=== PATIENT | female | born 1945 | race Caucasian/White ===

== ENCOUNTER → 2018-03-03 09:16 | Outpatient (CLI) | payer OTHER, SELFPAY ==
[2018-03-03 09:52] LABS: Hemoglobin A1C% w Est Avg Glu 6.9 % (4.0-6.0)
[2018-03-03 10:50] LABS: Alanine Aminotransferase 22 IU/L (9-52); Albumin Globulin Ratio 1.1 (1.0-2.8); Alkaline Phosphatase 92 U/L (38-126); Aspartate Aminotransferase 15 IU/L (14-36); BUN Creatinine Ratio 28.6 (6-22); Bilirubin Total 0.4 mg/dL (0.2-1.3); Blood Urea Nitrogen 20 mg/dL (7-17); Calcium 9.6 mg/dL (8.4-10.2); Carbon Dioxide 31 mmol/L (22-32); Chloride 102 mmol/L (98-107); Estimated Glomerular Filt Rate > 60.0 mL/min (>60); Globulin 3.5 g/dL (1.7-4.1); Glucose 115 mg/dL (80-110); HEMOLYSIS < 15 (0-50); Sodium 142 mmol/L (137-145); Total Protein 7.5 g/dL (6.3-8.2)
[2018-03-03 11:19] LABS: Creatinine Urine Random 99.6 mg/dL
[2018-03-03 11:21] LABS: Microalbumin Urine Random 0.7 mg/dL (0-1.6)
== END ==
PROVIDERS: PCP Internal Medicine; Visit Provider Internal Medicine
DX: E11.9 Type 2 diabetes mellitus without complications (principal); E78.00 Pure hypercholesterolemia, unspecified
CPT/HCPCS: 36415; 80053; 82043; 82570; 83036

== ENCOUNTER → 2018-03-12 10:49 | Outpatient (CLI) | payer OTHER, SELFPAY ==
[2018-03-12 13:05] LABS: Cholesterol 259 mg/dL (140-199); HDL Cholesterol 65 mg/dL (40-60); LDL Cholesterol Calculated 150 mg/dL (<100); Triglycerides 219 mg/dL (35-150)
== END ==
PROVIDERS: Family Provider Internal Medicine; PCP Internal Medicine; Visit Provider Internal Medicine
DX: E78.00 Pure hypercholesterolemia, unspecified (principal)
CPT/HCPCS: 36415; 80061

== ENCOUNTER → 2018-06-09 10:21 | Outpatient (CLI) | payer OTHER, SELFPAY ==
[2018-06-09 11:48] LABS: Cholesterol 251 mg/dL (140-199); HDL Cholesterol 60 mg/dL (40-60); LDL Cholesterol Calculated 147 mg/dL (<100); Triglycerides 220 mg/dL (35-150)
== END ==
PROVIDERS: Family Provider Internal Medicine; PCP Internal Medicine; Visit Provider Internal Medicine
DX: E78.00 Pure hypercholesterolemia, unspecified (principal)
CPT/HCPCS: 36415; 80061

== ENCOUNTER → 2018-06-23 09:48 | Outpatient (CLI) | payer OTHER, SELFPAY | PROVIDERS: PCP Internal Medicine; Visit Provider Internal Medicine | DX: M81.0 Age-related osteoporosis without current pathological fracture (principal); Z78.0 Asymptomatic menopausal state; E11.9 Type 2 diabetes mellitus without complications; Z87.891 Personal history of nicotine dependence | CPT/HCPCS: 77080 ==

== ENCOUNTER → 2018-09-04 09:27 | Outpatient (CLI) | payer OTHER, SELFPAY ==
[2018-09-04 10:11] LABS: Alanine Aminotransferase 20 IU/L (9-52); Aspartate Aminotransferase 18 IU/L (14-36); BUN Creatinine Ratio 28.6 (6-22); Blood Urea Nitrogen 20 mg/dL (7-17); Calcium 9.8 mg/dL (8.4-10.2); Carbon Dioxide 29 mmol/L (22-32); Chloride 105 mmol/L (98-107); Cholesterol 251 mg/dL (140-199); Estimated Glomerular Filt Rate > 60.0 mL/min (>60); Glucose 133 mg/dL (80-110); HDL Cholesterol 61 mg/dL (40-60); HEMOLYSIS < 15 (0-50); LDL Cholesterol Calculated 154 mg/dL (<100); Potassium 5.1 mmol/L (3.4-5.1); Sodium 143 mmol/L (137-145); Triglycerides 180 mg/dL (35-150)
[2018-09-04 10:27] LABS: Hemoglobin A1C% w Est Avg Glu 7.2 % (4.0-6.0)
[2018-09-04 11:02] LABS: Hep C Virus Ab w/Reflex Quant NEGATIVE s/c (NEGATIVE)
[2018-09-04 11:19] LABS: Creatinine Urine Random 104.3 mg/dL
[2018-09-04 11:22] LABS: Microalbumi Creatinin Ratio Ur 14.3 ug/mg CR (<30); Microalbumin Urine Random 1.5 mg/dL (0-1.6)
== END ==
PROVIDERS: PCP Internal Medicine; Visit Provider Internal Medicine
DX: E11.9 Type 2 diabetes mellitus without complications (principal); I10 Essential (primary) hypertension; E78.00 Pure hypercholesterolemia, unspecified; Z00.00 Encounter for general adult medical examination without abnormal findings
CPT/HCPCS: 36415; 80048; 80061; 82043; 82570; 83036; 84450; 84460; 86803

== ENCOUNTER 2018-11-14 12:58 | Emergency (ER) | payer OTHER, SELFPAY ==
[2018-11-14 13:13] VITALS: BP 107/67; PULSE 76; RESP 18; TEMP 36.8; O2SAT 95; BMI 29.8
--- NOTE | 2018-11-14 14:27 | ED.NECK ---
HPI - Neck Pain/Injury <TADEO Naranjo - Last Filed: 11/14/18 17:35> General Chief Complaint: Neck Pain/Injury Stated Complaint: LEFT ARM PAIN/WEAK/SHOULDER LT Time Seen by Provider: 11/14/18 14:07 Source: patient and family Mode of arrival: ambulatory Limitations: no limitations History of Present Illness HPI Narrative: Patient is a 72-year-old female who presents with her son with chief complaint of left neck and shoulder pain. Left neck pain started several months ago and left shoulder pain started several months ago. She complains of decreased range of motion with her left shoulder. Patient denies any chest pain. She does have a history of a stroke and diabetes and is concerned that she was having another stroke. Of note she states that the shoulder pain started several weeks ago when the neck pain several months ago. Her son states that she was weak this morning and in so much pain with her arm that she could not get out of bed. The patient denies any blurry vision double vision. She denies any chest pain or shortness of breath. she states that her left shoulder pain is worse with range of motion and movement. She states she had 1 episode of hot flashes and chills the other day. Related Data Previous Rx's Medication Instructions Recorded aspirin 325 mg PO QDAY #30 tab 04/02/17 atorvastatin [Lipitor] 40 mg PO HS #30 tab 04/02/17 carvedilol [Coreg] 6.25 mg PO BID #60 tab 04/02/17 insulin glargine [Lantus Solostar 25 unit SQ QDAY #1 vial 04/02/17 U-100 Insulin] losartan 50 mg PO BID #60 tab 04/02/17 metformin [Glucophage] 1,000 mg PO BIDCC #60 tab 04/02/17 lidocaine 1 patch TOP DAILY #15 each 11/14/18 Allergies Allergy/AdvReac Type Severity Reaction Status Date / Time codeine [CODEINE] Allergy Intermediate Verified 11/14/18 13:16 Review of Systems <TADEO Naranjo - Last Filed: 11/14/18 17:35> Review of Systems GENERAL: HPI HEENT: Denies sinus pain, ear pain, sore throat, difficulty swallowing, dizziness. RESPIRATORY: Denies dyspnea, cough, wheezing, hemoptysis, sputum. CARDIOVASCULAR: Denies chest pain, palpitations, orthopnea, edema, GASTROINTESTINAL: Denies nausea, vomiting, abdominal pain, diarrhea, constipation, melena. : Denies dysuria, frequency, incontinence, hematuria, urinary retention. MUSCULOSKELETAL: See HPI SKIN: Denies rash, skin lesions, or other NEUROLOGIC: See HPI PSYCHIATRIC: No concerning psychosocial issues. 12 point review of systems is negative except for those stated above PFSH <Eileen TADEO Mccollum - Last Filed: 11/14/18 17:35> Surgical History (Updated 12/16/17 @ 05:36 by Angle Mello DO) Status post ovarian cystectomy Family History (Updated 11/04/13 @ 00:00 by Angle Mello DO) Mother Diabetes mellitus Family History (Updated 11/04/13 @ 00:00 by Angle Mello DO) Mother Diabetes mellitus Exam <TADEO Naranjo - Last Filed: 11/14/18 17:35> Narrative Exam Narrative: GENERAL: The condition on early female lying on stretcher HEAD: Atraumatic. Normocephalic. No temporal or scalp tenderness. EYES: Pupils equal round and reactive. Extraocular motions intact. No scleral icterus. No injection or drainage. no nystagmus noted. ENT: Nose without bleeding, purulent drainage or septal hematoma. Throat without erythema, tonsillar hypertrophy or exudate. Uvula midline. Airway patent. NECK: Trachea midline. No JVD or lymphadenopathy. Supple, nontender, no meningeal signs. CARDIOVASCULAR: Regular rate and rhythm without murmurs, gallops, or rubs. RESPIRATORY: Clear to auscultation. Breath sounds equal bilaterally. No wheezes, rales, or rhonchi. GASTROINTESTINAL: Abdomen soft, non-tender, nondistended. No hepato-splenomegaly, or palpable masses. No guarding. EXTREMITIES: Pain to palpation left shoulder, decreased extension and flexion left shoulder noted. Pain on movement noted. Strength is equal bilateral hands. Positive radial pulses bilaterally. patient has pain on passive range of motion of left shoulder. BACK: Nontender without deformity or crepitance. No flank tenderness. NEURO: AOx3. Strength is equal upper and lower extremities bilaterally. Cranial nerves grossly intact. SKIN: No rash or erythema. No erythema or ecchymosis or rash noted left shoulder. Initial Vital Signs Initial Vital Signs: Vital Signs Temperature 98.3 F 11/14/18 13:13 Pulse Rate 76 11/14/18 13:13 Respiratory Rate 18 11/14/18 13:13 Blood Pressure 107/67 11/14/18 13:13 Pulse Oximetry 95 11/14/18 13:13 <Katie Victoria DO - Last Filed: 11/15/18 07:38> Initial Vital Signs Initial Vital Signs: Vital Signs Temperature 98.3 F 11/14/18 13:13 Pulse Rate 76 11/14/18 13:13 Respiratory Rate 18 11/14/18 13:13 Blood Pressure 107/67 11/14/18 13:13 Pulse Oximetry 95 11/14/18 13:13 Course <BINU NaranjoBC - Last Filed: 11/14/18 17:35> Course Narrative: I spoke profusely with the patient and her son given her long duration and the neck and shoulder pain. The son states that the patient had 15 physical therapy appointments with she did not attend. He states that she has a cane and a walker to use at home, but does not use either. They state that she has had a consistent decline in strength since August, when she saw Dr. Sarmiento for her neck and shoulder pain. she states she did not go to physical therapy because she did not want to. Orders Ordered: ED Orders 11/14/18 14:47 CT head/brain wo con Stat XR shoulder LT min 2V Stat 11/14/18 15:15 Complete Blood Count AUTO DIFF Stat Comprehensive Metabolic Panel Stat Influenza A and B by PCR Rapid Stat 11/14/18 16:40 Urinalysis and Microscopic Stat Vital Signs - 8 hr 11/14/18 13:13 Temperature 98.3 F Pulse Rate 76 Respiratory Rate 18 Blood Pressure 107/67 Pulse Oximetry 95 <Katie Victoria DO - Last Filed: 11/15/18 07:38> Orders Ordered: ED Orders 11/14/18 14:47 CT head/brain wo con Stat XR shoulder LT min 2V Stat 11/14/18 15:15 Complete Blood Count AUTO DIFF Stat Comprehensive Metabolic Panel Stat Influenza A and B by PCR Rapid Stat 11/14/18 16:40 Urinalysis and Microscopic Stat Vital Signs - 8 hr 11/14/18 13:13 Temperature 98.3 F Pulse Rate 76 Respiratory Rate 18 Blood Pressure 107/67 Pulse Oximetry 95 MDM - Neck Pain/Injury <Eileen Mccollum, [employer]- - Last Filed: 11/14/18 17:35> Lab Data Result diagrams: 11/14/18 15:15 11/14/18 15:15 Lab Results 11/14/18 11/14/18 11/14/18 Range/Units 15:15 15:15 15:15 WBC 14.0 H (4.5-11.0) X10^3/uL RBC 4.32 (4.0-5.2) X10^6/uL Hgb 13.0 (12.0-16.0) g/dL Hct 39.1 (36-46) % MCV 90.5 (80-100) fL MCH 30.1 (26-34) PG MCHC 33.3 (30-36) % RDW 13.8 (11.6-14.8) % Plt Count 279 (150-400) X10^3/uL Neut % (Auto) 76.5 H (50-75) % Lymph % (Auto) 12.5 L (25-40) % [place] % (Auto) 8.0 (3-14) % Eos % (Auto) 2.3 (2-4) % Baso % (Auto) 0.7 (0-2) % Neut # (Auto) 65821 H (5304-8171) /uL Lymph # (Auto) 1800 (1473-2172) /uL [place] # (Auto) 1100 H (0-900) /uL Eos # (Auto) 300 (0-450) /uL Baso # (Auto) 100 (0-100) /uL Sodium 139 (137-145) mmol/L Potassium 4.2 (3.4-5.1) mmol/L Chloride 101 (98-107) mmol/L Carbon Dioxide 28 (22-32) mmol/L BUN 21 H (7-17) mg/dL Creatinine 0.70 (0.52-1.04) mg/dL Estimated GFR > 60.0 (>60) mL/min BUN/Creatinine Ratio 30.0 H (6-22) Glucose 222 H (80-110) mg/dL Calcium 9.1 (8.4-10.2) mg/dL Total Bilirubin 0.5 (0.2-1.3) mg/dL AST 16 (14-36) IU/L ALT 17 (9-52) IU/L Alkaline Phosphatase 77 (38-126) U/L Total Protein 7.6 (6.3-8.2) g/dL Albumin 3.9 (3.5-5.0) g/dL Globulin 3.7 (1.7-4.1) g/dL Albumin/Globulin Ratio 1.1 (1.0-2.8) Urine Color Urine Appearance Urine pH (4.5-8.0) Ur Specific [place] (1.000-1.035) Urine Protein (Negative) Urine Glucose (UA) (Negative) g/dL Urine Ketones (NEGATIVE) Urine Occult Blood (Negative) Urine Nitrate (Negative) Urine Bilirubin (NEGATIVE) Urine Urobilinogen (0.2) E.U./dL Ur Leukocyte Esterase (NEGATIVE) Urine RBC (0-5/HPF) Urine WBC (0-5/HPF) Ur Squamous Epith Cells Urine Bacteria (None) Ur Culture Indicated? Influenza A & B (PCR) Negative (Negative) 11/14/18 Range/Units 16:40 WBC (4.5-11.0) X10^3/uL RBC (4.0-5.2) X10^6/uL Hgb (12.0-16.0) g/dL Hct (36-46) % MCV (80-100) fL MCH (26-34) PG MCHC (30-36) % RDW (11.6-14.8) % Plt Count (150-400) X10^3/uL Neut % (Auto) (50-75) % Lymph % (Auto) (25-40) % [place] % (Auto) (3-14) % Eos % (Auto) (2-4) % Baso % (Auto) (0-2) % Neut # (Auto) (9010-8778) /uL Lymph # (Auto) (8241-7566) /uL [place] # (Auto) (0-900) /uL Eos # (Auto) (0-450) /uL Baso # (Auto) (0-100) /uL Sodium (137-145) mmol/L Potassium (3.4-5.1) mmol/L Chloride (98-107) mmol/L Carbon Dioxide (22-32) mmol/L BUN (7-17) mg/dL Creatinine (0.52-1.04) mg/dL Estimated GFR (>60) mL/min BUN/Creatinine Ratio (6-22) Glucose (80-110) mg/dL Calcium (8.4-10.2) mg/dL Total Bilirubin (0.2-1.3) mg/dL AST (14-36) IU/L ALT (9-52) IU/L Alkaline Phosphatase (38-126) U/L Total Protein (6.3-8.2) g/dL Albumin (3.5-5.0) g/dL Globulin (1.7-4.1) g/dL Albumin/Globulin Ratio (1.0-2.8) Urine Color Yellow Urine Appearance Clear Urine pH 5.0 (4.5-8.0) Ur Specific [place] >=1.030 H (1.000-1.035) Urine Protein Negative (Negative) Urine Glucose (UA) Trace H (Negative) g/dL Urine Ketones Negative (NEGATIVE) Urine Occult Blood Negative (Negative) Urine Nitrate Negative (Negative) Urine Bilirubin Negative (NEGATIVE) Urine Urobilinogen 0.2 (0.2) E.U./dL Ur Leukocyte Esterase Negative (NEGATIVE) Urine RBC None seen (0-5/HPF) Urine WBC None seen (0-5/HPF) Ur Squamous Epith Cells 10-30 /hpf H Urine Bacteria None seen (None) Ur Culture Indicated? Cult not indicated Influenza A & B (PCR) (Negative) Imaging Data CT scan - head: Radiologist's impression: Isabel Ruiz 72 [address] 1945 [place] [address] CT Scan Report Signed Patient: Isabel Ruiz MMR#: [id number] : 6Acct:[id number] Age/Sex: 72 / FDate of Service: 11/14/18 Loc: ED Accession Number: [id number] Procedure: CT head/brain wo con Ordering Provider: Eileen Mccollum PROCEDURE: CT HEAD/BRAIN WO CON INDICATIONS: weakness TECHNIQUE: Noncontrast 4.5 mm thick angled axial sections acquired from the foramen magnum to the vertex, with coronal and sagittal reformats. For radiation dose reduction, the following was used: automated exposure control, adjustment of mA and/or kV according to patient size. COMPARISON: [facility], CT, HEAD WITHOUT CONTRAST, 03/31/2017, 7:42. FINDINGS: Image quality: Excellent. CSF spaces: Basal cisterns are patent. No extra-axial fluid collections. The ventricles are symmetric in size and shape. Brain: No intracranial bleeds or masses. No acute stroke seen. There is cerebral volume loss for age, with resultant ventricular and sulcal prominence. There are moderate to severe periventricular and deep white matter chronic small vessel ischemic changes. Multiple small chronic bilateral deep white matter lacunar infarctions are noted. There is intracranial internal carotid artery atherosclerosis. Skull and face: Calvarium and visualized facial bones appear intact, without suspicious lesions. Sinuses: Visualized sinuses and mastoids are clear. IMPRESSION: 1. Age-related volume loss and moderate to severe small vessel ischemic change. Multiple old lacunar infarctions. 2. No evidence of acute stroke, hemorrhage, or mass. Dictated by: Morgan Mcdowell M.D. on 11/14/2018 at 15:20 Approved by: Morgan Mcdowell M.D. on 11/14/2018 at 15:22 shoulder xray : Radiologist's impression: [place] [address] XRay Report Signed Patient: Isabel Ruiz [facility]#: [id number] : 6Acct:[id number] Age/Sex: 72 / FDate of Service: 11/14/18 Loc: ED Accession Number: [id number] Procedure: XR shoulder LT min 2V Ordering Provider: Eileen Mccollum- PROCEDURE: XR SHOULDER LT MIN 2V INDICATIONS: shoulder pain x several weeks, decreased rom TECHNIQUE: 3 views of the shoulder were acquired. COMPARISON: None. FINDINGS: Bones: No fractures or dislocations. No suspicious bony lesions. Visualized ribs appear intact. Soft tissues: Bursal calcifications are consistent with calcific bursitis. IMPRESSION: No acute bony abnormality of the left shoulder. Calcific bursitis. Dictated by: Morgan Mcdowell M.D. on 11/14/2018 at 15:15 Approved by: Morgan Mcdowell M.D. on 11/14/2018 at 15:15 [facility] Narrative Medical decision making narrative: The patient is a 72-year-old female who presents with a long history of left shoulder pain and left-sided neck pain. she has been taking [place] given to her by her primary care provider. She is also concerned about repeat stroke given the pain in her left shoulder. I discussed that strokes do not generally presents with pain on range of motion. she has otherwise a normal neurological exam. X-ray illustrated calcific bursitis of her left shoulder. Her head CT showed no recent infarct. Given her complaints of chills, I obtained a flu which was negative. we did check for a UTI given the patient's diffuse complaints, but that came back without signs of infection. The patient was ambulating around the emergency department without incident prior to discharge. I discussed at length that she needs to follow up with her primary care provider, and would likely benefit from some physical therapy. I discussed starting NSAIDs as well as topical analgesia. I did do basic lab work given the patient's vague complaints, and found she was not anemic. She does have a very slightly elevated white blood cell count at 14, but does not have any cough congestion shortness of breath complaints or abnormalities on exam at this point time. This could be site safety representative of a stress response. I discussed follow-up with primary care provider. Discussed going back to the emergency department for any acute concerns including concern of stroke or heart attack. Patient and son had no questions or concerns upon discharge. <Katie Victoria, DO - Last Filed: 11/15/18 07:38> Lab Data Lab Results 11/14/18 11/14/18 11/14/18 Range/Units 15:15 15:15 15:15 WBC 14.0 H (4.5-11.0) X10^3/uL RBC 4.32 (4.0-5.2) X10^6/uL Hgb 13.0 (12.0-16.0) g/dL Hct 39.1 (36-46) % MCV 90.5 (80-100) fL MCH 30.1 (26-34) PG MCHC 33.3 (30-36) % RDW 13.8 (11.6-14.8) % Plt Count 279 (150-400) X10^3/uL Neut % (Auto) 76.5 H (50-75) % Lymph % (Auto) 12.5 L (25-40) % [place] % (Auto) 8.0 (3-14) % Eos % (Auto) 2.3 (2-4) % Baso % (Auto) 0.7 (0-2) % Neut # (Auto) 02160 H (1749-6402) /uL Lymph # (Auto) 1800 (7162-6483) /uL [place] # (Auto) 1100 H (0-900) /uL Eos # (Auto) 300 (0-450) /uL Baso # (Auto) 100 (0-100) /uL Sodium 139 (137-145) mmol/L Potassium 4.2 (3.4-5.1) mmol/L Chloride 101 (98-107) mmol/L Carbon Dioxide 28 (22-32) mmol/L BUN 21 H (7-17) mg/dL Creatinine 0.70 (0.52-1.04) mg/dL Estimated GFR > 60.0 (>60) mL/min BUN/Creatinine Ratio 30.0 H (6-22) Glucose 222 H (80-110) mg/dL Calcium 9.1 (8.4-10.2) mg/dL Total Bilirubin 0.5 (0.2-1.3) mg/dL AST 16 (14-36) IU/L ALT 17 (9-52) IU/L Alkaline Phosphatase 77 (38-126) U/L Total Protein 7.6 (6.3-8.2) g/dL Albumin 3.9 (3.5-5.0) g/dL Globulin 3.7 (1.7-4.1) g/dL Albumin/Globulin Ratio 1.1 (1.0-2.8) Urine Color Urine Appearance Urine pH (4.5-8.0) Ur Specific [place] (1.000-1.035) Urine Protein (Negative) Urine Glucose (UA) (Negative) g/dL Urine Ketones (NEGATIVE) Urine Occult Blood (Negative) Urine Nitrate (Negative) Urine Bilirubin (NEGATIVE) Urine Urobilinogen (0.2) E.U./dL Ur Leukocyte Esterase (NEGATIVE) Urine RBC (0-5/HPF) Urine WBC (0-5/HPF) Ur Squamous Epith Cells Urine Bacteria (None) Ur Culture Indicated? Influenza A & B (PCR) Negative (Negative) 11/14/18 Range/Units 16:40 WBC (4.5-11.0) X10^3/uL RBC (4.0-5.2) X10^6/uL Hgb (12.0-16.0) g/dL Hct (36-46) % MCV (80-100) fL MCH (26-34) PG MCHC (30-36) % RDW (11.6-14.8) % Plt Count (150-400) X10^3/uL Neut % (Auto) (50-75) % Lymph % (Auto) (25-40) % [place] % (Auto) (3-14) % Eos % (Auto) (2-4) % Baso % (Auto) (0-2) % Neut # (Auto) (5360-4416) /uL Lymph # (Auto) (2490-5033) /uL [place] # (Auto) (0-900) /uL Eos # (Auto) (0-450) /uL Baso # (Auto) (0-100) /uL Sodium (137-145) mmol/L Potassium (3.4-5.1) mmol/L Chloride (98-107) mmol/L Carbon Dioxide (22-32) mmol/L BUN (7-17) mg/dL Creatinine (0.52-1.04) mg/dL Estimated GFR (>60) mL/min BUN/Creatinine Ratio (6-22) Glucose (80-110) mg/dL Calcium (8.4-10.2) mg/dL Total Bilirubin (0.2-1.3) mg/dL AST (14-36) IU/L ALT (9-52) IU/L Alkaline Phosphatase (38-126) U/L Total Protein (6.3-8.2) g/dL Albumin (3.5-5.0) g/dL Globulin (1.7-4.1) g/dL Albumin/Globulin Ratio (1.0-2.8) Urine Color Yellow Urine Appearance Clear Urine pH 5.0 (4.5-8.0) Ur Specific [place] >=1.030 H (1.000-1.035) Urine Protein Negative (Negative) Urine Glucose (UA) Trace H (Negative) g/dL Urine Ketones Negative (NEGATIVE) Urine Occult Blood Negative (Negative) Urine Nitrate Negative (Negative) Urine Bilirubin Negative (NEGATIVE) Urine Urobilinogen 0.2 (0.2) E.U./dL Ur Leukocyte Esterase Negative (NEGATIVE) Urine RBC None seen (0-5/HPF) Urine WBC None seen (0-5/HPF) Ur Squamous Epith Cells 10-30 /hpf H Urine Bacteria None seen (None) Ur Culture Indicated? Cult not indicated Influenza A & B (PCR) (Negative) Discharge Plan Departure Patient Disposition: Home Clinical Impression: Calcific bursitis of shoulder Discharge Date/Time: 11/14/18 17:40 Interventions: ED Discharge Assessment Last Done: 11/14/18 17:40 Instructions: DI for Calcific Tendonitis of the Shoulder, DI for Shoulder Pain Activity Restrictions/Additional Instructions: Your head CT showed no recent abnormalities. Your x-ray of your shoulder showed calcific bursitis. Treatment for this includes physical therapy, NSAIDs, steroid injections if needed. Please follow up with your primary care provider about this in the next few days. Your flu test came back negative. Your urine showed no signs of infection. I have given you a prescription for a pain patch to put on your shoulder. You can also take NSAIDs such as ibuprofen or Aleve. Please take that with food. You have elected to use [id number] medication for this. Please come back to the emergency department for any acute concerns including chest pain, shortness of breath or concern for stroke. Prescriptions: New lidocaine 5 % adhesive patch,medicated 1 patch TOP DAILY Qty: 15 RF: 0 No Action atorvastatin [Lipitor] 20 MG tablet 40 mg PO HS Qty: 30 RF: 0 aspirin 325 MG tablet,delayed release (DR/EC) 325 mg PO QDAY Qty: 30 RF: 0 losartan 50 MG tablet 50 mg PO BID Qty: 60 RF: 0 insulin glargine [Lantus Solostar U-100 Insulin] 100 UNIT/1 ML insulin pen 25 unit SQ QDAY Qty: 1 RF: 0 metformin [Glucophage] 1,000 MG tablet 1,000 mg PO BIDCC Qty: 60 RF: 0 carvedilol [Coreg] 6.25 MG tablet 6.25 mg PO BID Qty: 60 RF: 0 Referrals: Rosenda Sarmiento MD [Primary Care Provider] - <Katie Victoria DO - Last Filed: 11/15/18 07:38> Cosign ED Attending Cosignature Attestation: I was immediately available in the department for consultation. Documentation has been reviewed. I agree with assessment and plan.
--- NOTE | 2018-11-14 14:47 | DI.CT.S_ITS ---
PROCEDURE: CT HEAD/BRAIN WO CON INDICATIONS: weakness TECHNIQUE: Noncontrast 4.5 mm thick angled axial sections acquired from the foramen magnum to the vertex, with coronal and sagittal reformats. For radiation dose reduction, the following was used: automated exposure control, adjustment of mA and/or kV according to patient size. COMPARISON: [facility], CT, HEAD WITHOUT CONTRAST, 03/31/2017, 7:42. FINDINGS: Image quality: Excellent. CSF spaces: Basal cisterns are patent. No extra-axial fluid collections. The ventricles are symmetric in size and shape. Brain: No intracranial bleeds or masses. No acute stroke seen. There is cerebral volume loss for age, with resultant ventricular and sulcal prominence. There are moderate to severe periventricular and deep white matter chronic small vessel ischemic changes. Multiple small chronic bilateral deep white matter lacunar infarctions are noted. There is intracranial internal carotid artery atherosclerosis. Skull and face: Calvarium and visualized facial bones appear intact, without suspicious lesions. Sinuses: Visualized sinuses and mastoids are clear. IMPRESSION: 1. Age-related volume loss and moderate to severe small vessel ischemic change. Multiple old lacunar infarctions. 2. No evidence of acute stroke, hemorrhage, or mass. Dictated by: Morgan Mcdowell M.D. on 11/14/2018 at 15:20 Approved by: Morgan Mcdowell M.D. on 11/14/2018 at 15:22
--- NOTE | 2018-11-14 14:47 | DI.RAD.S_ITS ---
PROCEDURE: XR SHOULDER LT MIN 2V INDICATIONS: shoulder pain x several weeks, decreased rom TECHNIQUE: 3 views of the shoulder were acquired. COMPARISON: None. FINDINGS: Bones: No fractures or dislocations. No suspicious bony lesions. Visualized ribs appear intact. Soft tissues: Bursal calcifications are consistent with calcific bursitis. IMPRESSION: No acute bony abnormality of the left shoulder. Calcific bursitis. Dictated by: Morgan Mcdowell M.D. on 11/14/2018 at 15:15 Approved by: Morgan Mcdowell M.D. on 11/14/2018 at 15:15
[2018-11-14 15:35] LABS: Alanine Aminotransferase 17 IU/L (9-52); Albumin 3.9 g/dL (3.5-5.0); Albumin Globulin Ratio 1.1 (1.0-2.8); Alkaline Phosphatase 77 U/L (38-126); Aspartate Aminotransferase 16 IU/L (14-36); Bilirubin Total 0.5 mg/dL (0.2-1.3); Blood Urea Nitrogen 21 mg/dL (7-17); Calcium 9.1 mg/dL (8.4-10.2); Carbon Dioxide 28 mmol/L (22-32); Chloride 101 mmol/L (98-107); Estimated Glomerular Filt Rate > 60.0 mL/min (>60); Globulin 3.7 g/dL (1.7-4.1); Glucose 222 mg/dL (80-110); HEMOLYSIS < 15 (0-50); Potassium 4.2 mmol/L (3.4-5.1); Sodium 139 mmol/L (137-145); Total Protein 7.6 g/dL (6.3-8.2)
[2018-11-14 15:47] LABS: Influenza A and B by PCR Rapid Negative (Negative)
[2018-11-14 15:56] LABS: Add Manual Diff / Slide Review NO; Basophils Absolute Auto 100 /uL (0-100); Basophils Percent Auto 0.7 % (0-2); Eosinophils Absolute Auto 300 /uL (0-450); Eosinophils Percent Auto 2.3 % (2-4); Hematocrit 39.1 % (36-46); Lymphocytes Absolute Auto 1800 /uL (1100-4500); Lymphocytes Percent Auto 12.5 % (25-40); Mean Corpuscular HGB Conc 33.3 % (30-36); Mean Corpuscular Hemoglobin 30.1 PG (26-34); Mean Corpuscular Volume 90.5 fL (80-100); Monocytes Absolute Auto 1100 /uL (0-900); Neutrophils Absolute Auto 10700 /uL (1500-7000); Neutrophils Percent Auto 76.5 % (50-75); Platelet Count 279 X10^3/uL (150-400); Red Blood Cell Count 4.32 X10^6/uL (4.0-5.2); Red Cell Distribution Width 13.8 % (11.6-14.8)
[2018-11-14 16:46] LABS: Bacteria Urine None Seen; RBC Urine None Seen (0-5/HPF); WBC Urine None Seen (0-5/HPF)
[2018-11-14 16:47] LABS: Appearance Urine UA CLEAR; Bilirubin Urine UA NEGATIVE (NEGATIVE); Color Urine UA YELLOW; Glucose Urine UA TRACE g/dL (Negative); Ketones Urine UA NEGATIVE (NEGATIVE); Leukocyte Esterase Urine UA NEGATIVE (NEGATIVE); Nitrite Urine UA NEGATIVE (Negative); Occult Blood Urine UA NEGATIVE (Negative); Protein Urine UA NEGATIVE (Negative); Specific Gravity Urine UA >=1.030 (1.000-1.035); Urobilinogen Urine UA 0.2 E.U./dL (0.2)
[2018-11-14 16:56] LABS: Culture Indicated Urine Cult Not Indicated; Squamous Epithelial Cell Urine 10-30 /HPF
[2018-11-14 17:40] VITALS: BP 183/85; PULSE 84; RESP 15; O2SAT 96
== END 2018-11-14 17:40 | disposition home or self-care (01) ==
PROVIDERS: Emergency Provider Nurse Practitioner Family; PCP Internal Medicine
DX: M75.32 Calcific tendinitis of left shoulder (principal); M54.2 Cervicalgia; R53.1 Weakness
CPT/HCPCS: 36415; 70450; 73030; 80053; 81001; 85025; 87400; 99282; 99284

== ENCOUNTER → 2018-12-09 09:31 | Outpatient (CLI) | payer OTHER, SELFPAY ==
[2018-12-09 10:20] LABS: C-Reactive Protein Quant 2.5 mg/dL (<1.0)
[2018-12-09 10:30] LABS: Erythrocyte Sedimentation Rate 31 MM/HR (0-20)
== END ==
PROVIDERS: PCP Internal Medicine; Visit Provider Internal Medicine
DX: M25.511 Pain in right shoulder (principal)
CPT/HCPCS: 36415; 85651; 86140

== ENCOUNTER 2019-01-06 13:00 | Outpatient (RCR) | payer OTHER, SELFPAY ==
[2018-11-19 15:15] VITALS: BP 140/82
--- NOTE | 2018-11-19 15:15 | PT.OIE ---
Current Diagnoses Cervicalgia (11/19/18) Past Surgical History Status post ovarian cystectomy Provider Visit Care Team Role Provider Type Rosenda Sarmiento MD Attending Provider Physician Primary Care Provider Specialty: Internal Medicine Address: [address] [place] [address], [facility] Email: Physical Therapy Initial Evaluation PT-OP-A Visit Information Start: 11/19/18 16:09 Freq: Status: Active Protocol: Document 11/19/18 15:15 RCC (Rec: 11/19/18 16:22 RCC [email or web address]) Out-Patient Physical Therapy Visit Information Visit Information Visit Type Initial Evaluation Visit Start Time 15:15 Visit Stop Time 16:05 Total Visit Minutes 50 Visit Number 1 Number of LEARNING CONSULTANT Visits 0 Evaluation Information Evaluation Date 11/19/18 Precautions Precautions HTN, h/o CVA 03/2017- monitor BP PT-OP-B Current Condition Start: 11/19/18 16:09 Freq: Status: Active Protocol: Document 11/19/18 15:15 RCC (Rec: 11/19/18 16:22 RCC [email or web address]) Current Condition History of Current Condition Onset Date 2016 Current Complaints neck pain, bilateral shoulder pain R>L History of Current Condition Pt is a 72 y/o female presenting to physical therapy with a c/o bilateral neck and shoulder pain. Pt with onset of neck pain back in 2017 s/p CVA. Over the past several months she noticed that she has had worsening L shoulder pain. She went to the ER on d/t severe L shoulder and neck pain and weakness of the L shoulder. Pt was worried she was having another CVA. CT of head was negative for acute findings, radiograph was negative for fx of L shoulder , but possibly showed calcification in bursa. Pt notes that since that ER visit , her L shoulder pain has decreased, but now has increased pain in the R shoulder the exact location the L shoulder was painful ( superior and posterior shoulder). Pt admits to not being able to do much activity at all since her CVA, she had speech therapy d/t expressive aphasia with improvements but still with difficulty finding words occasionally. 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 Denies any numbness or tingling or dizziness beyond her baseline. Treatment Goals Patient/Caregiver Goals decrease pain, improve ROM and return to painting Prior Functional Status Baseline Function- Recreation/Hobbies was able to pain prior to CVA and neck pain onset 2017 Current Functional Impairments (Reported) Functional Limitations- Recreation/ unable to paint due to neck Hobbies and shoulder pain Personal Factors Other Personal Factors That May Effect CVA 2017 with expressive Therapy/Recovery aphasia, DM type II, HTN PT-OP-C Subjective Start: 11/19/18 16:09 Freq: Status: Active Protocol: Document 11/19/18 15:15 RCC (Rec: 11/19/18 16:22 RCC [email or web address]) OP-PT Subjective Patient Comments Patient Comments R shoulder more painful than L shoulder since 11/14/18 ER visit. OP-PT Pain Assessment Location R shoulder Intensity 6 Scale Used Numeric (1 - 10) Bilateral neck Intensity 8 Scale Used Numeric (1 - 10) PT-OP-F Manual Assessment Start: 11/19/18 16:09 Freq: Status: Active Protocol: Document 11/19/18 15:15 RCC (Rec: 11/19/18 16:22 RCC [email or web address]) Manual Assessments Soft Tissue Assessment Soft Tissue Mobility Assessment Moderate tension: cervical paraspinals, levator and UT bilaterally; mild tension in suboccipitals bilaterally, R infraspinatus, bilateral anterior and medial deltoids Joint Mobility Assessment Joint Mobility Assessment C3-6 hypomobility with unilat PAs and sideglides PT-OP-H Neuro Start: 11/19/18 16:09 Freq: Status: Active Protocol: Document 11/19/18 15:15 RCC (Rec: 11/19/18 16:22 RCC [email or web address]) Sensation Evaluation Gross Sensation Gross Sensation WNL Deep Tendon Reflex & Clonus Assessment Deep Tendon Reflex Bilateral Tricep Deep Tendon Reflex 2+ Normal Bilateral Brachioradialis Deep Tendon Reflex 2+ Normal Bilateral Bicep Deep Tendon Reflex 2+ Normal Vital Signs Blood Pressure Supine Blood Pressure (90/60-120/80 mmHg) 140/82 H Blood Pressure Source Manual Cuff Left Upper Extremity PT-OP-J Posture/Palpation/Skin Start: 11/19/18 16:09 Freq: Status: Active Protocol: Document 11/19/18 15:15 RCC (Rec: 11/19/18 16:22 RCC [email or web address]) Posture Evaluation Comments Posture Comments increased thoracis kyphosis, cervical lordosis with elevated shoulders bilaterally , moderate forward shoulders ( in sitting) PT-OP-K Range of Motion Start: 11/19/18 16:09 Freq: Status: Active Protocol: Document 11/19/18 15:15 RCC (Rec: 11/19/18 16:29 RCC [email or web address]) Cervical Spine Range of Motion Cervical Spine Active Degrees Testing Position Sitting Flexion 20 Extension 30 Rotation Left 45 Rotation Right 48 Lateral Flexion Left 20 Lateral Flexion Right 28 ROM Limitations Soft Tissue Tightness Pain Shoulder Goniometric Range of Motion Shoulder Measured in Degrees Right Passive Testing Position Supine Flexion 150 Abduction 150 External Rotation at 45 degrees 60 Abduction Internal Rotation 70 Left Passive Testing Position Supine Flexion 150 Abduction 150 External Rotation at 45 degrees 75 Abduction Internal Rotation 70 Right Active Testing Position Sitting Flexion 120 Abduction 120 Left Active Testing Position Sitting Flexion 140 Abduction 150 PT-OP-L Special Tests Start: 11/19/18 16:09 Freq: Status: Active Protocol: Document 11/19/18 15:15 RCC (Rec: 11/19/18 16:29 RCC [email or web address]) Special Tests Cervical Spine Special Tests Foraminal Compression Test Results positive B Spurling's Test Test Results positive B Shoulder Special Tests Drop Arm Rotator Cuff Test Results negative B Empty Can Test Results negative B Rojas Prieto Impingement Test Results positive R, negative L Lift-Off Rotator Cuff Test Results negative B PT-OP-M Strength Start: 11/19/18 16:09 Freq: Status: Active Protocol: Document 11/19/18 15:15 RCC (Rec: 11/19/18 16:29 RCC [email or web address]) Shoulder Strength Shoulder Manual Muscle Testing Right Flexion 3+ Fair+ Abduction (C5) 4 Good External Rotation 4 Good Internal Rotation 5 Normal Left Flexion 4 Good Abduction (C5) 4 Good External Rotation 4+ Good+ Internal Rotation 5 Normal Elbow/Forearm Strength Elbow and Forearm Manual Muscle Testing Right Flexion (C6) 4+ Good+ Extension (C7) 4+ Good+ Left Flexion (C6) 4+ Good+ Extension (C7) 4+ Good+ PT-OP-Q Treatments Start: 11/19/18 16:09 Freq: Status: Active Protocol: Document 11/19/18 15:15 RCC (Rec: 11/19/18 16:29 RCC [email or web address]) Therapeutic Exercises Supine Exercises chin tuck Side bilateral Reps/Minutes x5 with 5 sec hold Comments gentle cervical rotation Side bilateral Reps/Minutes x5 each direction Comments gentle in pain-free range; head on 2 pillows Sitting Exercises scapular retraction Side bilateral Reps/Minutes x20 Comments tactile cuing, demonstration PT-OP-R Modalities Start: 11/19/18 16:09 Freq: Status: Active Protocol: Document 11/19/18 15:15 RCC (Rec: 11/19/18 16:29 RCC [email or web address]) Hot Pack/Cold Pack Treatment Hot Pack Location cervical spine Patient Position Sitting Treatment Duration (minutes) 10 Patient Tolerance Good PT-OP-T Assessment and Plan Start: 11/19/18 16:09 Freq: Status: Active Protocol: Document 11/19/18 15:15 RCC (Rec: 11/19/18 16:41 RCC [email or web address]) Physical Therapy Assessment Rehab Potential Rehabilitation Potential Good Evaluation Complexity Number of Personal Factors/Comorbidities 3 or More Number of Body Systems Impaired 3 Clinical Presentation at Evaluation Evolving Impairments Impairments Activity Tolerance Pain Posture ROM Soft Tissue Mobility Strength Goals pain Impairment neck and shoulder pain Short Term Goal (STG) Pain rated 6/10 or less in neck and bilateral shoulders. STG Duration 5 weeks Processing Analyst Goal (LTG) Pain rated 4/10 or less in neck and bilateral shoulders to improve overall daily function with mobility and UE movements and usage. UE weakness Impairment bilateral UE weakness Short Term Goal (STG) Right shoulder strength to at least 4/5 with manual muscle testing with shoulder flexion and abduction. STG Duration 5 weeks Care Home Goal (LTG) Bilateral shoulder strength to at least 4+/5 with manual muscle testing with shoulder flexion, abduction, and ER prior to d/c to improve with return to painting and functional use of UEs. LTG Duration 10 weeks posture Impairment posture Care Home Goal (LTG) pt will be able to hold neutral head on neck position in sitting for 5 minutes using chin tuck method without increased pain prior to d/c. LTG Duration 10 weeks cervical spine ROM Impairment ROM of cervical spine Short Term Goal (STG) flexion to 40 deg, extension to 45 deg, SB to 35 deg, rotation to 60 degrees of ROM. STG Duration 5 weeks Processing Analyst Goal (LTG) flexion to 50 deg, extension to 50 deg, SB to 45 deg, rotation to 70 deg of ROM bilaterally to improve overall functional head on neck motions including looking over her shoulder without pain. 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 Pt does appear to have impingement signs/symptoms in the R shoulder but given the amount of referred pain it possibly could be secondary to cervical spine. L shoulder appears to be improved from . Overall, pt demonstrates poor sitting and standing posture, UE weakness bilaterally, and limited shoulder and cervical spine ROM, which would greatly benefit from skilled physical therapy intervention. Due to comorbidities and chronicity of condition, it is likely to require a prolonged amount of time to progress pt toward functional goals, including painting, at least 10 weeks of physical therapy. Physical Therapy Plan Frequency and Duration Frequency of Treatment 2x/Week Duration of Treatment 10 weeks Plan of Care Start Date 11/19/18 Plan of Care End Date 01/28/19 Therapeutic Interventions Therapeutic Interventions Aquatic Therapy Home Exercise Program Joint Mobilizations Manual Therapy Neuromuscular Re-education Patient/Caregiver Education Self-Care/Home Management Soft Tissue Mobilization Taping Therapeutic Activities Therapeutic Exercises Modalities Cold Pack/Ice Massage Electric Stimulation Hot Packs Traction- Mechanical Ultrasound Next Visit Focus/Plan Next Note Type Treatment Note Next Visit Plan manual therapy to c/s and modalities for pain control, initiate gentle UT, levator, and scalene stretching if able manually and if tolerated well add to HEP for self stretching gently; nereida's for B shoulder flexion and abduction, postural awareness.
--- NOTE | 2018-11-26 12:02 | PT.OTN ---
Current Diagnoses Cervicalgia (11/26/18) Physical Therapy Treatment Note PT-OP-A Visit Information Start: 11/19/18 16:09 Freq: Status: Active Protocol: Document 11/26/18 12:02 RCC (Rec: 11/26/18 13:24 RCC [email or web address]) Out-Patient Physical Therapy Visit Information Visit Information Visit Type Treatment Note Visit Start Time 12:02 Visit Stop Time 12:52 Total Visit Minutes 50 Visit Number 2 Number of DELIVERY LEAD Visits 0 Evaluation Information Evaluation Date 11/19/18 Precautions Precautions HTN, h/o CVA 03/2017- monitor BP PT-OP-B Current Condition Start: 11/19/18 16:09 Freq: Status: Active Protocol: Document 11/19/18 15:15 RCC (Rec: 11/19/18 16:22 RCC [email or web address]) Current Condition History of Current Condition Onset Date 2016 Current Complaints neck pain, bilateral shoulder pain R>L History of Current Condition Pt is a 72 y/o female presenting to physical therapy with a c/o bilateral neck and shoulder pain. Pt with onset of neck pain back in 2017 s/p CVA. Over the past several months she noticed that she has had worsening L shoulder pain. She went to the ER on d/t severe L shoulder and neck pain and weakness of the L shoulder. Pt was worried she was having another CVA. CT of head was negative for acute findings, radiograph was negative for fx of L shoulder , but possibly showed calcification in bursa. Pt notes that since that ER visit , her L shoulder pain has decreased, but now has increased pain in the R shoulder the exact location the L shoulder was painful ( superior and posterior shoulder). Pt admits to not being able to do much activity at all since her CVA, she had speech therapy d/t expressive aphasia with improvements but still with difficulty finding words occasionally. 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 Denies any numbness or tingling or dizziness beyond her baseline. Treatment Goals Patient/Caregiver Goals decrease pain, improve ROM and return to painting Prior Functional Status Baseline Function- Recreation/Hobbies was able to pain prior to CVA and neck pain onset 2016 Current Functional Impairments (Reported) Functional Limitations- Recreation/ unable to paint due to neck Hobbies and shoulder pain Personal Factors Other Personal Factors That May Effect CVA 2017 with expressive Therapy/Recovery aphasia, DM type II, HTN PT-OP-C Subjective Start: 11/19/18 16:09 Freq: Status: Active Protocol: Document 11/26/18 12:02 RCC (Rec: 11/26/18 13:24 RCC [email or web address]) OP-PT Subjective Patient Comments Patient Comments Pt feels like she is improved a little bit since last session, she has been doing her exercises. Patient Questionnaires Neck Disability Index NDI Score 28 PT-OP-F Manual Assessment Start: 11/19/18 16:09 Freq: Status: Active Protocol: Document 11/19/18 15:15 RCC (Rec: 11/19/18 16:22 RCC [email or web address]) Manual Assessments Soft Tissue Assessment Soft Tissue Mobility Assessment Moderate tension: cervical paraspinals, levator and UT bilaterally; mild tension in suboccipitals bilaterally, R infraspinatus, bilateral anterior and medial deltoids Joint Mobility Assessment Joint Mobility Assessment C3-6 hypomobility with unilat PAs and sideglides PT-OP-H Neuro Start: 11/19/18 16:09 Freq: Status: Active Protocol: Document 11/19/18 15:15 RCC (Rec: 11/19/18 16:22 RCC [email or web address]) Sensation Evaluation Gross Sensation Gross Sensation WNL Deep Tendon Reflex & Clonus Assessment Deep Tendon Reflex Bilateral Tricep Deep Tendon Reflex 2+ Normal Bilateral Brachioradialis Deep Tendon Reflex 2+ Normal Bilateral Bicep Deep Tendon Reflex 2+ Normal Vital Signs Blood Pressure Supine Blood Pressure (90/60-120/80 mmHg) 140/82 H Blood Pressure Source Manual Cuff Left Upper Extremity PT-OP-J Posture/Palpation/Skin Start: 11/19/18 16:09 Freq: Status: Active Protocol: Document 11/19/18 15:15 RCC (Rec: 11/19/18 16:22 RCC [email or web address]) Posture Evaluation Comments Posture Comments increased thoracis kyphosis, cervical lordosis with elevated shoulders bilaterally , moderate forward shoulders ( in sitting) PT-OP-K Range of Motion Start: 11/19/18 16:09 Freq: Status: Active Protocol: Document 11/19/18 15:15 RCC (Rec: 11/19/18 16:29 RCC [email or web address]) Cervical Spine Range of Motion Cervical Spine Active Degrees Testing Position Sitting Flexion 20 Extension 30 Rotation Left 45 Rotation Right 48 Lateral Flexion Left 20 Lateral Flexion Right 28 ROM Limitations Soft Tissue Tightness Pain Shoulder Goniometric Range of Motion Shoulder Measured in Degrees Right Passive Testing Position Supine Flexion 150 Abduction 150 External Rotation at 45 degrees 60 Abduction Internal Rotation 70 Left Passive Testing Position Supine Flexion 150 Abduction 150 External Rotation at 45 degrees 75 Abduction Internal Rotation 70 Right Active Testing Position Sitting Flexion 120 Abduction 120 Left Active Testing Position Sitting Flexion 140 Abduction 150 PT-OP-L Special Tests Start: 11/19/18 16:09 Freq: Status: Active Protocol: Document 11/19/18 15:15 RCC (Rec: 11/19/18 16:29 RCC [email or web address]) Special Tests Cervical Spine Special Tests Foraminal Compression Test Results positive B Spurling's Test Test Results positive B Shoulder Special Tests Drop Arm Rotator Cuff Test Results negative B Empty Can Test Results negative B Rojas Prieto Impingement Test Results positive R, negative L Lift-Off Rotator Cuff Test Results negative B PT-OP-M Strength Start: 11/19/18 16:09 Freq: Status: Active Protocol: Document 11/19/18 15:15 RCC (Rec: 11/19/18 16:29 RCC [email or web address]) Shoulder Strength Shoulder Manual Muscle Testing Right Flexion 3+ Fair+ Abduction (C5) 4 Good External Rotation 4 Good Internal Rotation 5 Normal Left Flexion 4 Good Abduction (C5) 4 Good External Rotation 4+ Good+ Internal Rotation 5 Normal Elbow/Forearm Strength Elbow and Forearm Manual Muscle Testing Right Flexion (C6) 4+ Good+ Extension (C7) 4+ Good+ Left Flexion (C6) 4+ Good+ Extension (C7) 4+ Good+ PT-OP-Q Treatments Start: 11/19/18 16:09 Freq: Status: Active Protocol: Document 11/26/18 12:02 RCC (Rec: 11/26/18 13:24 RCC [email or web address]) Therapeutic Exercises Supine Exercises shoulder pulleys Supine Exercise Name flexion and abduction Side bilateral Reps/Minutes 3 min each chin tuck Side bilateral Reps/Minutes x5 with 5 sec hold Comments gentle cervical rotation Side bilateral Reps/Minutes x5 each direction Comments gentle in pain-free range; head on 2 pillows Sitting Exercises levator and UT stretch Side bilateral Reps/Minutes x3 each stretch each side scapular retraction Side bilateral Resistance L1 Reps/Minutes x20 Standing Exercises shoulder extension Side bilateral Resistance L1 Reps/Minutes x15 Manual Therapy Treatment Soft Tissue Mobilization levator, upper trap, scalenes, suboccipitals Body Location bilateral Mobilization Type Rolling Strumming Sustained Pressure Intensity/Depth Moderate Body Position Hooklying PT-OP-R Modalities Start: 11/19/18 16:09 Freq: Status: Active Protocol: Document 11/26/18 12:02 RCC (Rec: 11/26/18 13:24 RCC [email or web address]) Hot Pack/Cold Pack Treatment Hot Pack Location cervical spine Patient Position Hooklying Treatment Duration (minutes) 10 Patient Tolerance Good PT-OP-T Assessment and Plan Start: 11/19/18 16:09 Freq: Status: Active Protocol: Document 11/26/18 12:02 [facility] (Rec: 11/26/18 13:24 [facility] [email or web address]) Physical Therapy Assessment Assessment Summary Assessment Pt tolerated stretching of levator and upper trap without c/o pain but definite tension . R still more tense than the L in cervical spine mm. Pt requires tactile cuing with scapular motion with standing shoulder extension and tends to sway back with attempted improved standing and sitting posture. Physical Therapy Plan Frequency and Duration Frequency of Treatment 2x/Week Duration of Treatment 10 weeks Plan of Care Start Date 11/19/18 Plan of Care End Date 01/28/19 Next Visit Focus/Plan Next Note Type Treatment Note Next Visit Plan assess tolerance to soft tissue/manual therapy, progress standing segnmental posture
--- NOTE | 2018-12-04 16:30 | PT.OTN ---
Current Diagnoses Cervicalgia (12/04/18) Physical Therapy Treatment Note PT-OP-A Visit Information Start: 11/19/18 16:09 Freq: Status: Active Protocol: Document 12/04/18 14:45 HH (Rec: 12/04/18 16:29 HH [email or web address]) Out-Patient Physical Therapy Visit Information Visit Information Visit Type Treatment Note Visit Note Pt is late. Visit Start Time 14:45 Visit Stop Time 15:30 Total Visit Minutes 45 Visit Number 3 Number of MOTOR BUILDER WINDER Visits 0 PT-OP-B Current Condition Start: 11/19/18 16:09 Freq: Status: Active Protocol: Document 11/19/18 15:15 RCC (Rec: 11/19/18 16:22 RCC [email or web address]) Current Condition History of Current Condition Onset Date 2017 Current Complaints neck pain, bilateral shoulder pain R>L History of Current Condition Pt is a 72 y/o female presenting to physical therapy with a c/o bilateral neck and shoulder pain. Pt with onset of neck pain back in 2017 s/p CVA. Over the past several months she noticed that she has had worsening L shoulder pain. She went to the ER on d/t severe L shoulder and neck pain and weakness of the L shoulder. Pt was worried she was having another CVA. CT of head was negative for acute findings, radiograph was negative for fx of L shoulder , but possibly showed calcification in bursa. Pt notes that since that ER visit , her L shoulder pain has decreased, but now has increased pain in the R shoulder the exact location the L shoulder was painful ( superior and posterior shoulder). Pt admits to not being able to do much activity at all since her CVA, she had speech therapy d/t expressive aphasia with improvements but still with difficulty finding words occasionally. 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 Denies any numbness or tingling or dizziness beyond her baseline. Treatment Goals Patient/Caregiver Goals decrease pain, improve ROM and return to painting Prior Functional Status Baseline Function- Recreation/Hobbies was able to pain prior to CVA and neck pain onset 2016 Current Functional Impairments (Reported) Functional Limitations- Recreation/ unable to paint due to neck Hobbies and shoulder pain Personal Factors Other Personal Factors That May Effect CVA 2017 with expressive Therapy/Recovery aphasia, DM type II, HTN PT-OP-C Subjective Start: 11/19/18 16:09 Freq: Status: Active Protocol: Document 12/04/18 14:45 HH (Rec: 12/04/18 16:29 HH [email or web address]) OP-PT Subjective Patient Comments Patient Comments I think natasha getting a little better. Im doing my exercises here and there PT-OP-F Manual Assessment Start: 11/19/18 16:09 Freq: Status: Active Protocol: Document 11/19/18 15:15 RCC (Rec: 11/19/18 16:22 RCC [email or web address]) Manual Assessments Soft Tissue Assessment Soft Tissue Mobility Assessment Moderate tension: cervical paraspinals, levator and UT bilaterally; mild tension in suboccipitals bilaterally, R infraspinatus, bilateral anterior and medial deltoids Joint Mobility Assessment Joint Mobility Assessment C3-6 hypomobility with unilat PAs and sideglides PT-OP-H Neuro Start: 11/19/18 16:09 Freq: Status: Active Protocol: Document 11/19/18 15:15 RCC (Rec: 11/19/18 16:22 RCC [email or web address]) Sensation Evaluation Gross Sensation Gross Sensation WNL Deep Tendon Reflex & Clonus Assessment Deep Tendon Reflex Bilateral Tricep Deep Tendon Reflex 2+ Normal Bilateral Brachioradialis Deep Tendon Reflex 2+ Normal Bilateral Bicep Deep Tendon Reflex 2+ Normal Vital Signs Blood Pressure Supine Blood Pressure (90/60-120/80 mmHg) 140/82 H Blood Pressure Source Manual Cuff Left Upper Extremity PT-OP-J Posture/Palpation/Skin Start: 11/19/18 16:09 Freq: Status: Active Protocol: Document 11/19/18 15:15 RCC (Rec: 11/19/18 16:22 RCC [email or web address]) Posture Evaluation Comments Posture Comments increased thoracis kyphosis, cervical lordosis with elevated shoulders bilaterally , moderate forward shoulders ( in sitting) PT-OP-K Range of Motion Start: 11/19/18 16:09 Freq: Status: Active Protocol: Document 11/19/18 15:15 RCC (Rec: 11/19/18 16:29 RCC [email or web address]) Cervical Spine Range of Motion Cervical Spine Active Degrees Testing Position Sitting Flexion 20 Extension 30 Rotation Left 45 Rotation Right 48 Lateral Flexion Left 20 Lateral Flexion Right 28 ROM Limitations Soft Tissue Tightness Pain Shoulder Goniometric Range of Motion Shoulder Measured in Degrees Right Passive Testing Position Supine Flexion 150 Abduction 150 External Rotation at 45 degrees 60 Abduction Internal Rotation 70 Left Passive Testing Position Supine Flexion 150 Abduction 150 External Rotation at 45 degrees 75 Abduction Internal Rotation 70 Right Active Testing Position Sitting Flexion 120 Abduction 120 Left Active Testing Position Sitting Flexion 140 Abduction 150 PT-OP-L Special Tests Start: 11/19/18 16:09 Freq: Status: Active Protocol: Document 11/19/18 15:15 RCC (Rec: 11/19/18 16:29 RCC [email or web address]) Special Tests Cervical Spine Special Tests Foraminal Compression Test Results positive B Spurling's Test Test Results positive B Shoulder Special Tests Drop Arm Rotator Cuff Test Results negative B Empty Can Test Results negative B Rojas Prieto Impingement Test Results positive R, negative L Lift-Off Rotator Cuff Test Results negative B PT-OP-M Strength Start: 11/19/18 16:09 Freq: Status: Active Protocol: Document 11/19/18 15:15 RCC (Rec: 11/19/18 16:29 RCC [email or web address]) Shoulder Strength Shoulder Manual Muscle Testing Right Flexion 3+ Fair+ Abduction (C5) 4 Good External Rotation 4 Good Internal Rotation 5 Normal Left Flexion 4 Good Abduction (C5) 4 Good External Rotation 4+ Good+ Internal Rotation 5 Normal Elbow/Forearm Strength Elbow and Forearm Manual Muscle Testing Right Flexion (C6) 4+ Good+ Extension (C7) 4+ Good+ Left Flexion (C6) 4+ Good+ Extension (C7) 4+ Good+ PT-OP-Q Treatments Start: 11/19/18 16:09 Freq: Status: Active Protocol: Document 12/04/18 14:45 HH (Rec: 12/04/18 16:29 HH [email or web address]) Therapeutic Exercises Supine Exercises chin tuck Side bilateral Reps/Minutes x5 with 10 sec hold Comments gentle Sitting Exercises CARs with towel Sitting Exercise Name cervical active ROM ([place]) Side bilateral Equipment Used towel at upper T/S Reps/Minutes 5 mins Comments self PA mob with towel + CARs scapular roll Side bilateral Reps/Minutes 8 x 3 Comments needs cues to avoid trunk movements levator and UT stretch Side bilateral Reps/Minutes x3 each stretch each side scapular retraction Side bilateral Resistance L1 Reps/Minutes x20 Manual Therapy Treatment Soft Tissue Mobilization levator, upper trap, scalenes, suboccipitals Body Location bilateral Mobilization Type Rolling Strumming Sustained Pressure Intensity/Depth Moderate Body Position Hooklying Joint Mobilizations PA mob Joint PA mob Direction Pa Grade II Body Position Sitting Reps/Duration 10 mins Comments at T1-T4 with cervical flexion and extension Manual Traction cervical distraction Body Position Supine PT-OP-R Modalities Start: 11/19/18 16:09 Freq: Status: Active Protocol: Document 12/04/18 14:45 HH (Rec: 12/04/18 16:30 HH [email or web address]) Hot Pack/Cold Pack Treatment Hot Pack Patient Position Hooklying Treatment Duration (minutes) 15 Patient Tolerance Good PT-OP-T Assessment and Plan Start: 11/19/18 16:09 Freq: Status: Active Protocol: Document 12/04/18 14:45 HH (Rec: 12/04/18 16:29 HH [email or web address]) Physical Therapy Assessment Assessment Summary Assessment Pt presents dowager hump at static posture and demonstrates hypermobile CT junction (excessive fold lines ) but significant hypomobille upper thoracic joint during cervical AROM. Pt firstly reports of pinching pain with lateral flexion and extension but improved with PA mob at upper t spine during CARs. Pt will cont need training for segmental trunk mobility and scapular mobility . Physical Therapy Plan Next Visit Focus/Plan Next Note Type Treatment Note Next Visit Plan assess tolerance to soft tissue/manual therapy, progress standing segnmental posture
--- NOTE | 2019-01-06 14:17 | PT.OTN ---
Current Diagnoses Cervicalgia (01/06/19) Physical Therapy Treatment Note PT-OP-A Visit Information Start: 11/19/18 16:09 Freq: Status: Active Protocol: Document 01/06/19 13:55 [facility] (Rec: 01/06/19 14:17 [facility] [email or web address]) Out-Patient Physical Therapy Visit Information Visit Information Visit Type Treatment Note Visit Note pt is 10 min late Visit Start Time 13:10 Visit Stop Time 13:55 Total Visit Minutes 45 Visit Number 4 Number of PRODUCTION MACHINIST Visits 0 Evaluation Information Evaluation Date 11/19/18 PT-OP-B Current Condition Start: 11/19/18 16:09 Freq: Status: Active Protocol: Document 11/19/18 15:15 RCC (Rec: 11/19/18 16:22 RCC [email or web address]) Current Condition History of Current Condition Onset Date 2017 Current Complaints neck pain, bilateral shoulder pain R>L History of Current Condition Pt is a 72 y/o female presenting to physical therapy with a c/o bilateral neck and shoulder pain. Pt with onset of neck pain back in 2017 s/p CVA. Over the past several months she noticed that she has had worsening L shoulder pain. She went to the ER on d/t severe L shoulder and neck pain and weakness of the L shoulder. Pt was worried she was having another CVA. CT of head was negative for acute findings, radiograph was negative for fx of L shoulder , but possibly showed calcification in bursa. Pt notes that since that ER visit , her L shoulder pain has decreased, but now has increased pain in the R shoulder the exact location the L shoulder was painful ( superior and posterior shoulder). Pt admits to not being able to do much activity at all since her CVA, she had speech therapy d/t expressive aphasia with improvements but still with difficulty finding words occasionally. 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 Denies any numbness or tingling or dizziness beyond her baseline. Treatment Goals Patient/Caregiver Goals decrease pain, improve ROM and return to painting Prior Functional Status Baseline Function- Recreation/Hobbies was able to pain prior to CVA and neck pain onset 2017 Current Functional Impairments (Reported) Functional Limitations- Recreation/ unable to paint due to neck Hobbies and shoulder pain Personal Factors Other Personal Factors That May Effect CVA 2017 with expressive Therapy/Recovery aphasia, DM type II, HTN PT-OP-C Subjective Start: 11/19/18 16:09 Freq: Status: Active Protocol: Document 01/06/19 13:55 [facility] (Rec: 01/06/19 14:17 [facility] [email or web address]) OP-PT Subjective Patient Comments Patient Comments Pt reports she wants to hold PT and try massage therapy and chiropractic. She states she is not doing her exercises much at home PT-OP-F Manual Assessment Start: 11/19/18 16:09 Freq: Status: Active Protocol: Document 11/19/18 15:15 RCC (Rec: 11/19/18 16:22 RCC [email or web address]) Manual Assessments Soft Tissue Assessment Soft Tissue Mobility Assessment Moderate tension: cervical paraspinals, levator and UT bilaterally; mild tension in suboccipitals bilaterally, R infraspinatus, bilateral anterior and medial deltoids Joint Mobility Assessment Joint Mobility Assessment C3-6 hypomobility with unilat PAs and sideglides PT-OP-H Neuro Start: 11/19/18 16:09 Freq: Status: Active Protocol: Document 11/19/18 15:15 RCC (Rec: 11/19/18 16:22 RCC [email or web address]) Sensation Evaluation Gross Sensation Gross Sensation WNL Deep Tendon Reflex & Clonus Assessment Deep Tendon Reflex Bilateral Tricep Deep Tendon Reflex 2+ Normal Bilateral Brachioradialis Deep Tendon Reflex 2+ Normal Bilateral Bicep Deep Tendon Reflex 2+ Normal Vital Signs Blood Pressure Supine Blood Pressure (90/60-120/80 mmHg) 140/82 H Blood Pressure Source Manual Cuff Left Upper Extremity PT-OP-J Posture/Palpation/Skin Start: 11/19/18 16:09 Freq: Status: Active Protocol: Document 11/19/18 15:15 RCC (Rec: 11/19/18 16:22 RCC [email or web address]) Posture Evaluation Comments Posture Comments increased thoracis kyphosis, cervical lordosis with elevated shoulders bilaterally , moderate forward shoulders ( in sitting) PT-OP-K Range of Motion Start: 11/19/18 16:09 Freq: Status: Active Protocol: Document 11/19/18 15:15 RCC (Rec: 11/19/18 16:29 RCC [email or web address]) Cervical Spine Range of Motion Cervical Spine Active Degrees Testing Position Sitting Flexion 20 Extension 30 Rotation Left 45 Rotation Right 48 Lateral Flexion Left 20 Lateral Flexion Right 28 ROM Limitations Soft Tissue Tightness Pain Shoulder Goniometric Range of Motion Shoulder Measured in Degrees Right Passive Testing Position Supine Flexion 150 Abduction 150 External Rotation at 45 degrees 60 Abduction Internal Rotation 70 Left Passive Testing Position Supine Flexion 150 Abduction 150 External Rotation at 45 degrees 75 Abduction Internal Rotation 70 Right Active Testing Position Sitting Flexion 120 Abduction 120 Left Active Testing Position Sitting Flexion 140 Abduction 150 PT-OP-L Special Tests Start: 11/19/18 16:09 Freq: Status: Active Protocol: Document 11/19/18 15:15 RCC (Rec: 11/19/18 16:29 RCC [email or web address]) Special Tests Cervical Spine Special Tests Foraminal Compression Test Results positive B Spurling's Test Test Results positive B Shoulder Special Tests Drop Arm Rotator Cuff Test Results negative B Empty Can Test Results negative B Rojas Prieto Impingement Test Results positive R, negative L Lift-Off Rotator Cuff Test Results negative B PT-OP-M Strength Start: 11/19/18 16:09 Freq: Status: Active Protocol: Document 11/19/18 15:15 RCC (Rec: 11/19/18 16:29 RCC [email or web address]) Shoulder Strength Shoulder Manual Muscle Testing Right Flexion 3+ Fair+ Abduction (C5) 4 Good External Rotation 4 Good Internal Rotation 5 Normal Left Flexion 4 Good Abduction (C5) 4 Good External Rotation 4+ Good+ Internal Rotation 5 Normal Elbow/Forearm Strength Elbow and Forearm Manual Muscle Testing Right Flexion (C6) 4+ Good+ Extension (C7) 4+ Good+ Left Flexion (C6) 4+ Good+ Extension (C7) 4+ Good+ PT-OP-Q Treatments Start: 11/19/18 16:09 Freq: Status: Active Protocol: Document 01/06/19 13:55 [facility] (Rec: 01/06/19 14:17 [facility] [email or web address]) Therapeutic Exercises Supine Exercises 1 Supine Exercise Name cervical flexion Reps/Minutes x 5 chin tuck Side bilateral Reps/Minutes x5 with 10 sec hold Comments gentle cervical rotation Side bilateral Reps/Minutes x5 each direction Comments gentle in pain-free range; head on 2 pillows Sitting Exercises CARs with towel Sitting Exercise Name cervical active ROM ([place]) Side bilateral Equipment Used towel at upper T/S Reps/Minutes 5 mins Comments self PA mob with towel + CARs scapular roll Side bilateral Reps/Minutes 8 x 3 Comments needs cues to avoid trunk movements levator and UT stretch Side bilateral Reps/Minutes x3 each stretch each side scapular retraction Side bilateral Resistance L1 Reps/Minutes x20 Manual Therapy Treatment Soft Tissue Mobilization levator, upper trap, scalenes, suboccipitals Body Location bilateral Mobilization Type Rolling Strumming Sustained Pressure Intensity/Depth Moderate Body Position Hooklying Joint Mobilizations PA mob Joint PA mob Direction Pa Grade II Body Position Sitting Reps/Duration 10 mins Comments at T1-T4 with cervical flexion and extension PT-OP-R Modalities Start: 11/19/18 16:09 Freq: Status: Active Protocol: Document 12/04/18 14:45 HH (Rec: 12/04/18 16:30 HH [email or web address]) Hot Pack/Cold Pack Treatment Hot Pack Patient Position Hooklying Treatment Duration (minutes) 15 Patient Tolerance Good PT-OP-T Assessment and Plan Start: 11/19/18 16:09 Freq: Status: Active Protocol: Document 01/06/19 13:55 [facility] (Rec: 01/06/19 14:17 [facility] [email or web address]) Physical Therapy Assessment Assessment Summary Assessment I reviewed all of Isabel's cervical stretches and posture exercises today. I did try ultrasound which she liked on the left upper trap. We talked about putting on her hot pack at home and then doing her range of motion exercises following after the heat. She wishes to discontinue PT at this time and try manager wound care. Physical Therapy Plan Discharge Physical Therapy Discharge Reasons Patient Request
== END 2019-01-07 10:23 | disposition home or self-care (01) ==
LOC: PHYS 13:00
PROVIDERS: PCP Internal Medicine; Visit Provider Internal Medicine
DX: M54.2 Cervicalgia (principal)
CPT/HCPCS: 97010; 97035; 97110; 97140; 97162

== ENCOUNTER → 2019-03-03 10:25 | Outpatient (CLI) | payer OTHER, SELFPAY ==
[2019-03-03 11:43] LABS: Erythrocyte Sedimentation Rate 9 MM/HR (0-20)
[2019-03-03 12:03] LABS: Alanine Aminotransferase 22 IU/L (9-52); Aspartate Aminotransferase 12 IU/L (14-36); Blood Urea Nitrogen 21 mg/dL (7-17); C-Reactive Protein Quant 1.3 mg/dL (<1.0); Carbon Dioxide 29 mmol/L (22-32); Chloride 106 mmol/L (98-107); Cholesterol 215 mg/dL (140-199); Estimated Glomerular Filt Rate > 60.0 mL/min (>60); Glucose 124 mg/dL (80-110); HDL Cholesterol 64 mg/dL (40-60); HEMOLYSIS < 15 (0-50); LDL Cholesterol Calculated 118 mg/dL (<100); Potassium 4.1 mmol/L (3.4-5.1); Sodium 141 mmol/L (137-145); Triglycerides 167 mg/dL (35-150)
== END ==
PROVIDERS: PCP Internal Medicine; Visit Provider Internal Medicine
DX: M35.3 Polymyalgia rheumatica (principal); I10 Essential (primary) hypertension; E78.00 Pure hypercholesterolemia, unspecified
CPT/HCPCS: 36415; 80048; 80061; 84450; 84460; 85651; 86140

== ENCOUNTER → 2019-05-12 10:54 | Outpatient (CLI) | payer OTHER, SELFPAY ==
[2019-05-12 11:28] LABS: Hemoglobin A1C% w Est Avg Glu 7.6 % (4.0-6.0)
[2019-05-12 11:44] LABS: Alanine Aminotransferase 9 IU/L (9-52); Aspartate Aminotransferase 18 IU/L (14-36); BUN Creatinine Ratio 25.7 (6-22); Blood Urea Nitrogen 18 mg/dL (7-17); Calcium 9.2 mg/dL (8.4-10.2); Carbon Dioxide 29 mmol/L (22-32); Chloride 105 mmol/L (98-107); Cholesterol 253 mg/dL (140-199); Estimated Glomerular Filt Rate > 60.0 mL/min (>60); Glucose 147 mg/dL (80-110); HDL Cholesterol 53 mg/dL (40-60); HEMOLYSIS < 15 (0-50); LDL Cholesterol Calculated 162 mg/dL (<100); Potassium 4.2 mmol/L (3.4-5.1); Sodium 140 mmol/L (137-145); Triglycerides 189 mg/dL (35-150)
== END ==
PROVIDERS: PCP Internal Medicine; Visit Provider Internal Medicine
DX: I10 Essential (primary) hypertension (principal); E78.5 Hyperlipidemia, unspecified; E11.9 Type 2 diabetes mellitus without complications
CPT/HCPCS: 36415; 80048; 80061; 83036; 84450; 84460

== ENCOUNTER → 2019-09-23 10:49 | Outpatient (CLI) | payer MEDICARE, SELFPAY ==
[2019-09-23 11:34] LABS: Hemoglobin A1C% w Est Avg Glu 7.3 % (4.0-6.0)
[2019-09-23 11:45] LABS: Erythrocyte Sedimentation Rate 37 MM/HR (0-20)
[2019-09-23 12:01] LABS: Alanine Aminotransferase 13 IU/L (<35); Aspartate Aminotransferase 14 IU/L (14-36); BUN Creatinine Ratio 31.4 (6-22); Blood Urea Nitrogen 22 mg/dL (7-17); C-Reactive Protein Quant 5.8 mg/dL (<1.0); Calcium 9.8 mg/dL (8.4-10.2); Carbon Dioxide 28 mmol/L (22-32); Chloride 102 mmol/L (98-107); Cholesterol 231 mg/dL (140-199); Estimated Glomerular Filt Rate > 60.0 mL/min (>60); Glucose 153 mg/dL (80-110); HDL Cholesterol 61 mg/dL (40-60); HEMOLYSIS < 15 (0-50); LDL Cholesterol Calculated 143 mg/dL (<100); Potassium 4.9 mmol/L (3.4-5.1); Sodium 140 mmol/L (137-145); Triglycerides 135 mg/dL (35-150)
== END ==
PROVIDERS: PCP Internal Medicine; Referring Provider Internal Medicine; Visit Provider Internal Medicine
DX: M25.512 Pain in left shoulder (principal); I10 Essential (primary) hypertension; E78.00 Pure hypercholesterolemia, unspecified; E11.9 Type 2 diabetes mellitus without complications
CPT/HCPCS: 36415; 80048; 80061; 83036; 84450; 84460; 85651; 86140

== ENCOUNTER → 2020-05-17 10:03 | Outpatient (CLI) | payer MEDICARE, SELFPAY ==
[2020-05-17 11:11] LABS: Hemoglobin A1C% w Est Avg Glu 7.1 % (4.0-6.0)
[2020-05-17 11:17] LABS: Erythrocyte Sedimentation Rate 21 MM/HR (0-20)
[2020-05-17 11:26] LABS: Alanine Aminotransferase 13 IU/L (<35); Albumin 3.6 g/dL (3.5-5.0); Albumin Globulin Ratio 1.1 (1.0-2.8); Alkaline Phosphatase 73 U/L (38-126); Aspartate Aminotransferase 15 IU/L (14-36); BUN Creatinine Ratio 28.6 (6-22); Bilirubin Total 0.4 mg/dL (0.2-1.3); Blood Urea Nitrogen 18 mg/dL (7-17); C-Reactive Protein Quant 0.8 mg/dL (<1.0); Carbon Dioxide 29 mmol/L (22-32); Chloride 107 mmol/L (98-107); Cholesterol 208 mg/dL (140-199); Estimated Glomerular Filt Rate > 60.0 mL/min (>60); Globulin 3.2 g/dL (1.7-4.1); Glucose 84 mg/dL (80-110); HDL Cholesterol 55 mg/dL (40-60); HEMOLYSIS < 15 (0-50); LDL Cholesterol Calculated 118 mg/dL (<100); Potassium 4.1 mmol/L (3.4-5.1); Sodium 142 mmol/L (137-145); Total Protein 6.8 g/dL (6.3-8.2); Triglycerides 174 mg/dL (35-150)
== END ==
PROVIDERS: PCP Internal Medicine; Referring Provider Internal Medicine; Visit Provider Internal Medicine
DX: M35.3 Polymyalgia rheumatica (principal); I10 Essential (primary) hypertension; E11.9 Type 2 diabetes mellitus without complications; E78.00 Pure hypercholesterolemia, unspecified
CPT/HCPCS: 36415; 80053; 80061; 83036; 85651; 86140

== ENCOUNTER → 2020-06-16 16:10 | Outpatient (CLI) | payer MEDICARE, SELFPAY ==
--- NOTE | 2020-06-16 | DI.ECHO.S_ITS ---
[facility]---------+ [facility] +---------+ : : [address] : : : : [id number] : : : : Phone: [phone]---------+ Echocardiogram Report + + :Name: LUCERO MONTEMAYOR Study Date: 06/16/2020 Height: 66 in : :[facility] Weight: 202 lb : : Gender: Female BSA: 2.0 m2 : :: 1945 Age: 74 yrs BP: 136/73 mmHg: :Reason For Study: Dyspnea : : Performed By: Dunia Page : + + Interpretation Summary Left ventricular systolic function remains normal with an estimated ejection fraction of 65 to 70% without any focal wall motion abnormality. Left ventricular size and wall thickness remain normal and unchanged. There is likely a diastolic relaxation abnormality with possible mildly increased filling pressures but likely similar to the previous study. There has been no significant change from previous exam. The right ventricle appears normal and unchanged. Right ventricular systolic pressure cannot be estimated. Both atria are normal in size although left atrial size has increased since the previous study. The cardiac valves appear normal without any significant functional abnormality. The ascending aorta is mildly enlarged but unchanged from the previous exam. Procedure: A two-dimensional transthoracic echocardiogram with color flow and Doppler was performed. The study quality was technically difficult. Comparison is made with the echocardiogram of 03/31/2017. There were technical difficulties with the ECG through out the exam, the rhythm can not be accurately assessed. Left Ventricle: The left ventricle appears normal in size, wall thickness, and systolic function without any focal wall motion abnormalities. The ejection fraction is estimated to be 65-70%. Diastolic parameters suggest a relaxation abnormality of the left ventricle, consistent with probable normal filling pressures. There has been no significant change since the previous study. Right Ventricle: The right ventricle is normal in size and function. This is unchanged compared to the previous study. Atria: Both atria are normal in size. The left atrium has mildly increased in size since the prior echo exam. There is no Doppler evidence for an interatrial shunt. Mitral Valve: There is mild mitral annular calcification. The mitral valve leaflets appear normal. There is no evidence of stenosis, fluttering, or prolapse. There is no mitral regurgitation noted. Aortic Valve: The aortic valve is grossly normal. The aortic valve is slightly calcified. The aortic valve opens well. No aortic regurgitation is present. Tricuspid Valve: The tricuspid valve is normal in structure and function. There is a trace or physiologic amount of tricuspid regurgitation. Pulmonary artery pressures cannot be estimated because of the lack of a measurable TR jet velocity. Pulmonic Valve: The pulmonic valve is not well visualized. There is no significant valvular heart disease. Great Vessels: The aortic root is normal size. The ascending aorta is mildly enlarged. This is unchanged compared to the previous study. The pulmonary is not well visualized. The inferior vena cava was not well visualized. Pericardium/ Pleura There is no pericardial effusion. There is no pleural effusion. MMode/2D Measurements & Calculations LVIDd: 4.4 cm LVOT diam: 2.0 cm LVIDs: 2.9 cm Ao root diam: 3.2 cm FS: 33.8 % asc Aorta Diam: 3.5 cm IVSd: 0.61 cm LVPWd: 0.68 cm LV hall. diameter/BSA (cm/m^2): 2.2 LV sys. diameter/BSA (cm/m^2): 1.4 LA A2 area: 18.4 cm2 RA long axis: 4.6 cm LA A4 area: 19.5 cm2 RA area: 13.1 cm2 LA length (vol): 5.2 cm RA vol: 31.5 ml LA vol: 58.9 ml RA : 15.7 ml/m2 LA vol index: 29.3 ml/m2 IVC diam: 1.7 cm RVD1 (basal): 4.1 cm TAPSE: 1.7 cm Doppler Measurements & Calculations Ao V2 max: 163.3 cm/sec LVOT Max Rbadly: 108.4 cm/sec Ao V2 mean: 116.6 cm/sec LV V1 max P.7 mmHg Ao max P.7 mmHg LV V1 VTI: 24.6 cm Ao mean P.0 mmHg JUAN J(I,D): 2.2 cm2 Ao V2 VTI: 36.9 cm JUAN J(V,D): 2.2 cm2 sev ratio: 0.67 JUAN J indexed to BSA (cm^2/m^2): 1.1 MV E max bradly: 78.0 cm/sec MV P1/2t max bradly: 78.7 cm/sec MV A max bradly: 114.5 cm/sec MVA(P1/2t): 2.7 cm2 MV E/A: 0.68 Med Peak E' Bradly: 4.7 cm/sec E/E' med: 16.5 Lat Peak E' Bradly: 5.3 cm/sec E/E' lat: 14.8 E/e' average: 15.6 MV P1/2t: 81.2 msec [facility] 81.0 ml Reading Physician:12:14 PM
== END ==
PROVIDERS: PCP Internal Medicine; Referring Provider Internal Medicine; Visit Provider Internal Medicine
DX: I77.89 Other specified disorders of arteries and arterioles (principal); R06.00 Dyspnea, unspecified
CPT/HCPCS: 93306

== ENCOUNTER → 2020-12-15 09:18 | Outpatient (CLI) | payer OTHER, SELFPAY ==
[2020-12-15 10:51] LABS: Alanine Aminotransferase 15 IU/L (<35); Albumin 3.6 g/dL (3.5-5.0); Alkaline Phosphatase 82 U/L (38-126); Aspartate Aminotransferase 16 IU/L (14-36); BUN Creatinine Ratio 30.2 (6-22); Bilirubin Total 0.3 mg/dL (0.2-1.3); Blood Urea Nitrogen 19 mg/dL (7-17); Calcium 9.4 mg/dL (8.4-10.2); Carbon Dioxide 28 mmol/L (22-32); Chloride 107 mmol/L (98-107); Cholesterol 224 mg/dL (140-199); Estimated Glomerular Filt Rate > 60.0 mL/min (>60); Globulin 3.5 g/dL (1.7-4.1); Glucose 96 mg/dL (80-110); HDL Cholesterol 56 mg/dL (40-60); HEMOLYSIS < 15 (0-50); LDL Cholesterol Calculated 138 mg/dL (<100); Potassium 4.2 mmol/L (3.4-5.1); Sodium 140 mmol/L (137-145); Total Protein 7.1 g/dL (6.3-8.2); Triglycerides 151 mg/dL (35-150)
== END ==
PROVIDERS: PCP Internal Medicine; Referring Provider Internal Medicine; Visit Provider Internal Medicine
DX: I10 Essential (primary) hypertension (principal); E11.9 Type 2 diabetes mellitus without complications; E78.00 Pure hypercholesterolemia, unspecified
CPT/HCPCS: 36415; 80053; 80061; 83036

== ENCOUNTER → 2021-04-27 11:36 | Outpatient (CLI) | payer OTHER, SELFPAY ==
[2021-04-27 13:09] LABS: Hemoglobin A1C% w Est Avg Glu 5.9 % (4.0-6.0)
[2021-04-27 13:12] LABS: BUN Creatinine Ratio 24.6 (6-22); Blood Urea Nitrogen 17 mg/dL (7-17); Carbon Dioxide 29 mmol/L (22-32); Chloride 108 mmol/L (98-107); Cholesterol 220 mg/dL (140-199); Estimated Glomerular Filt Rate > 60.0 mL/min (>60); Glucose 75 mg/dL (80-110); HDL Cholesterol 53 mg/dL (40-60); HEMOLYSIS < 15 (0-50); LDL Cholesterol Calculated 141 mg/dL (<100); Sodium 141 mmol/L (137-145); Triglycerides 131 mg/dL (35-150)
== END ==
PROVIDERS: PCP Internal Medicine; Referring Provider Internal Medicine; Visit Provider Internal Medicine
DX: I10 Essential (primary) hypertension (principal); E11.69 Type 2 diabetes mellitus with other specified complication; E78.5 Hyperlipidemia, unspecified; Z79.4 Long term (current) use of insulin
CPT/HCPCS: 36415; 80048; 80061; 83036

== ENCOUNTER → 2022-04-02 13:23 | Outpatient (CLI) | payer OTHER, SELFPAY ==
[2022-04-02 14:56] LABS: Hemoglobin A1C% w Est Avg Glu 6.4 % (4.0-6.0)
[2022-04-02 15:02] LABS: BUN Creatinine Ratio 25.7 (6-22); Blood Urea Nitrogen 18 mg/dL (7-17); Carbon Dioxide 30 mmol/L (22-32); Chloride 106 mmol/L (98-107); Cholesterol 243 mg/dL (140-199); Estimated Glomerular Filt Rate > 60 mL/min (>60); Glucose 100 mg/dL (80-110); HDL Cholesterol 58 mg/dL (40-60); HEMOLYSIS < 15 (0-50); LDL Cholesterol Calculated 146 mg/dL (<100); Potassium 4.5 mmol/L (3.4-5.1); Sodium 140 mmol/L (137-145); Triglycerides 196 mg/dL (35-150)
== END ==
PROVIDERS: PCP Internal Medicine; Referring Provider Internal Medicine; Visit Provider Internal Medicine
DX: Z79.4 Long term (current) use of insulin (principal); I10 Essential (primary) hypertension; E78.5 Hyperlipidemia, unspecified; E11.69 Type 2 diabetes mellitus with other specified complication
CPT/HCPCS: 36415; 80048; 80061; 83036

== ENCOUNTER 2024-05-03 20:24 | Emergency (ER) | payer MEDICARE, SELFPAY ==
[2024-05-03 20:30] VITALS: PULSE 76
[2024-05-03 20:31] VITALS: BP 138/65; PULSE 76; O2SAT 95
[2024-05-03 20:32] VITALS: BP 138/65; PULSE 76; RESP 20; TEMP 36.9; O2SAT 93; BMI 28.2
[2024-05-03 20:33] VITALS: BP 148/61; PULSE 73; O2SAT 98
--- NOTE | 2024-05-03 20:36 | ED_ITS ---
HPI - Nausea/Vomiting/Diarrhea General Chief complaint: Nausea/Vomiting/Diarrhea Stated complaint: n/v/d weakness Time Seen by Provider: 05/03/24 20:27 Source: patient and EMS Mode of arrival: EMS History of Present Illness HPI Narrative: Patient is a 78-year-old female here for evaluation of multiple episodes of nausea and vomiting and weakness. She stated that she thinks it was something that she ate for lunch today. She went out to eat at a [place] restaurant. She was with her son. Her son has not having any symptoms. This evening she started to have some abdominal cramping and vomiting. She did receive some fluids and Zofran by EMS. Upon my evaluation she states she feels much better. No longer nauseous. No abdominal pain. No chest pain or shortness of breath or fevers. She did have 1 episode of loose stool earlier in the day Related Data Home Medications Medication Instructions Recorded Confirmed amlodipine 10 mg tablet 10 mg PO DAILY 09/26/22 10/03/22 aspirin 81 mg tablet,delayed 81 mg PO DAILY 09/26/22 10/03/22 release carvedilol 25 mg tablet 25 mg PO BID 09/26/22 10/03/22 insulin glargine 100 unit/mL (3 30 unit SUBCUT QDAY 09/26/22 10/03/22 mL) subcutaneous pen (Lantus Solostar U-100 Insulin) metformin 500 mg tablet 2,000 mg PO DAILY 09/26/22 10/03/22 multivitamin (Multiple Vitamins 1 tab PO DAILY 09/26/22 10/03/22 tablet) prednisone 1 mg tablet 4 mg PO DAILY 09/26/22 10/03/22 Previous Rx's Medication Instructions Recorded losartan 50 mg tablet 50 mg PO BID #60 tabs 04/02/17 Allergies Allergy/AdvReac Type Severity Reaction Status Date / Time No Known Drug Allergies Allergy Unverified 10/03/22 14:03 Review of Systems Review of Systems ROS Unobtainable: All systems reviewed & are unremarkable except as noted in HPI and below Patient History Surgical History Status post ovarian cystectomy Family History Mother Diabetes mellitus Social History (Reviewed 05/03/24 @ 21:12 by ANGELICA Jaimes Smoking Status: Never smoker Smoking Status: Never smoker alcohol intake frequency: holidays/special occasions only Substance Use Type: does not use Exam Initial Vital Signs Initial Vital Signs: Vital Signs Pulse Rate 76 05/03/24 20:30 Const General: cooperative, comfortable and No ill appearing [facility] Head: normal to inspection and normocephalic Resp Effort & Inspection: normal respiratory effort Cardio Rate: regular rate GI Inspection: normal to inspection and non-distended Palpation: soft, No firm, No guarding and No tender Skin General: no rashes or lesions noted Neuro General: patient alert, patient awake and moves all extremities Course Orders Ordered: ED Orders 05/03/24 20:15 Complete Blood Count AUTO DIFF Stat Comprehensive Metabolic Panel Stat Lipase Stat Sodium Chloride (Normal Saline 0.9%) 1,000 mls @ 1,000 mls/hr IV BOLUS ONE Stop: 05/03/24 21:35 Last Admin: 05/03/24 20:56 Dose: Not Given Documented By: MABLE Vital Signs Vital signs: Vital Signs - 8 hr 05/03/24 20:30 05/03/24 20:31 05/03/24 20:31 Temperature Pulse Rate 76 76 Respiratory Rate Blood Pressure 138/65 Pulse Oximetry 95 Oxygen Delivery Method 05/03/24 20:32 05/03/24 20:33 05/03/24 20:33 Temperature 98.5 F Pulse Rate 76 73 Respiratory Rate 20 Blood Pressure 138/65 148/61 H Pulse Oximetry 93 98 Oxygen Delivery Method Room Air Room Air MDM - Nausea/Vomiting/Diarrhea Lab Data Attestation: I reviewed the patient's lab results. 05/03/24 20:15 05/03/24 20:15 Labs: Lab Results 05/03/24 Range/Units 20:15 WBC 10.1 (4.5-11.0) X10^3/uL RBC 4.23 (4.0-5.2) X10^6/uL Hgb 13.3 (12.0-16.0) g/dL Hct 39.3 (36-46) % MCV 92.9 (80-100) fL MCH 31.4 (26-34) PG MCHC 33.8 (30-36) % RDW 13.7 (11.6-14.8) % Plt Count 295 (150-400) X10^3/uL Neut % (Auto) 66.8 (50-75) % Lymph % (Auto) 17.9 L (25-40) % [place] % (Auto) 8.1 (3-14) % Eos % (Auto) 6.6 H (2-4) % Baso % (Auto) 0.6 (0-2) % Neut # (Auto) 6800 (8627-5328) /uL Lymph # (Auto) 1800 (1758-1974) /uL [place] # (Auto) 800 (0-900) /uL Eos # (Auto) 700 H (0-450) /uL Baso # (Auto) 100 (0-100) /uL Sodium 141 (137-145) mmol/L Potassium 4.4 (3.4-5.1) mmol/L Chloride 107 (98-107) mmol/L Carbon Dioxide 24 (22-32) mmol/L BUN 21 H (7-17) mg/dL Creatinine 0.81 (0.52-1.04) mg/dL Estimated GFR > 60 (>60) mL/min BUN/Creatinine Ratio 25.9 H (6-22) Glucose 112 H (80-110) mg/dL Calcium 9.7 (8.4-10.2) mg/dL Total Bilirubin 0.4 (0.2-1.3) mg/dL AST 23 (14-36) IU/L ALT 18 (<35) IU/L Alkaline Phosphatase 94 (38-126) U/L Total Protein 7.6 (6.3-8.2) g/dL Albumin 3.8 (3.5-5.0) g/dL Globulin 3.8 (1.7-4.1) g/dL Albumin/Globulin Ratio 1.0 (1.0-2.8) Lipase 63 (23-300) U/L [facility] Narrative Medical decision making narrative: Patient has a benign abdominal exam. Is tolerating oral intake. Unremarkable vital signs. She was complete resolution of symptoms after Zofran. Labs unremarkable. I do suspect that this was related to something that she ate earlier in the day. I have low suspicion for bowel obstruction or other acute intra-abdominal issue. Feel that we can hold on radiologic studies for now. Will discharge home with Zofran. She was given return precautions. She expressed understanding and agreement. Discharge Plan Departure Patient Disposition: Home Clinical Impression: Nausea and vomiting Instructions: Nausea and Vomiting-Adult Activity Restrictions/Additional Instructions: Continue to take all of your medications as directed. Recommend that you he had a bland diet for the next couple days. Use the nausea medication as needed. You may develop loose stools over the next 24-48 hours. If this happens just be sure that you were increasing your fluid intake. Return to the emergency department for new or worsening symptoms. Prescriptions: No Action losartan 50 MG tablet 50 mg PO BID Qty: 60 0RF insulin glargine [Lantus Solostar U-100 Insulin] 100 unit/mL (3 mL) insulin pen 30 unit SUBCUT QDAY amlodipine 10 mg tablet 10 mg PO DAILY carvedilol 25 mg tablet 25 mg PO BID Rx Instructions: must administer with a meal/food metformin 500 mg tablet 2,000 mg PO DAILY prednisone 1 mg tablet 4 mg PO DAILY aspirin 81 mg tablet,delayed release (DR/EC) 81 mg PO DAILY multivitamin [Multiple Vitamins] Tablet 1 tab PO DAILY Referrals: Rosenda Sarmiento MD [Primary Care Provider] - Stand Alone Forms: Patient Portal/API
[2024-05-03 20:46] LABS: Add Manual Diff / Slide Review NO; Basophils Absolute Auto 100 /uL (0-100); Basophils Percent Auto 0.6 % (0-2); Eosinophils Absolute Auto 700 /uL (0-450); Eosinophils Percent Auto 6.6 % (2-4); Hematocrit 39.3 % (36-46); Hemoglobin 13.3 g/dL (12.0-16.0); Lymphocytes Absolute Auto 1800 /uL (1100-4500); Lymphocytes Percent Auto 17.9 % (25-40); Mean Corpuscular HGB Conc 33.8 % (30-36); Mean Corpuscular Hemoglobin 31.4 PG (26-34); Mean Corpuscular Volume 92.9 fL (80-100); Monocytes Absolute Auto 800 /uL (0-900); Monocytes Percent Auto 8.1 % (3-14); Neutrophils Absolute Auto 6800 /uL (1500-7000); Neutrophils Percent Auto 66.8 % (50-75); Platelet Count 295 X10^3/uL (150-400); Red Blood Cell Count 4.23 X10^6/uL (4.0-5.2); Red Cell Distribution Width 13.7 % (11.6-14.8); White Blood Cell Count 10.1 X10^3/uL (4.5-11.0)
[2024-05-03 20:50] LABS: Alanine Aminotransferase 18 IU/L (<35); Albumin 3.8 g/dL (3.5-5.0); Alkaline Phosphatase 94 U/L (38-126); Aspartate Aminotransferase 23 IU/L (14-36); BUN Creatinine Ratio 25.9 (6-22); Bilirubin Total 0.4 mg/dL (0.2-1.3); Blood Urea Nitrogen 21 mg/dL (7-17); Calcium 9.7 mg/dL (8.4-10.2); Carbon Dioxide 24 mmol/L (22-32); Chloride 107 mmol/L (98-107); Estimated Glomerular Filt Rate > 60 mL/min (>60); Globulin 3.8 g/dL (1.7-4.1); Glucose 112 mg/dL (80-110); HEMOLYSIS 29 (0-50); Lipase 63 U/L (23-300); Potassium 4.4 mmol/L (3.4-5.1); Sodium 141 mmol/L (137-145); Total Protein 7.6 g/dL (6.3-8.2)
[2024-05-03 21:00] VITALS: BP 136/61; PULSE 76; O2SAT 97
[2024-05-03] MEDS: ONDANSETRON 4 MG ODT PREPACK 1 BOTTLE MISC (21:19)
== END 2024-05-03 21:25 | disposition home or self-care (01) ==
PROVIDERS: Emergency Provider Emergency Medicine; PCP Internal Medicine
DX: R11.2 Nausea with vomiting, unspecified (principal)
CPT/HCPCS: 36415; 80053; 83690; 85025; 99283

== ENCOUNTER 2024-10-05 13:03 | Emergency (ER) | payer MEDICARE, SELFPAY ==
[2024-10-05] VITALS (22 sets, daily range): BP systolic 103–139; BP diastolic 51–63; PULSE 68–76; RESP 18–33; TEMP 37.6; O2SAT 90–100; BMI 31.4
--- NOTE | 2024-10-05 13:26 | DI.RAD.S_ITS ---
PROCEDURE: XR CHEST 1V INDICATIONS: chest pain TECHNIQUE: One view of the chest was acquired. COMPARISON: [facility], , CHEST 1 VIEW, 03/30/2017, 11:29. FINDINGS: Surgical changes and devices: None. Lungs and pleura: Lungs are clear. No pleural effusions or pneumothorax. Mediastinum: Mediastinal contours appear normal. Heart size is normal. Bones and chest wall: No suspicious bony lesions. Overlying soft tissues appear unremarkable. IMPRESSION: No acute cardiopulmonary abnormality is seen. Dictated by: Dean Herrera M.D. on 10/05/2024 at 14:21 Approved by: Dean Herrera M.D. on 10/05/2024 at 14:21
--- NOTE | 2024-10-05 13:29 | EKG_ITS ---
[address] [address] Test Date: 2024-10-05 Pat Name: Isabel Ruiz Department: Room: Gender: Female Property Claims Adjuster: JOHNY : 1945 Requested By: Order Number: [id number] Reading MD: Cheo Rainey Measurements Intervals [place] Rate: 71 P: 33 OR: 212 QRS: 4 QRSD: 78 T: 39 QT: 396 QTc: 430 Interpretive Statements Sinus rhythm with 1st degree AV block Possible Inferior infarct , age undetermined Electronically Signed On 10-05-2024 13:30:44 PST by Cheo Rainey
[2024-10-05 14:22] LABS: Add Manual Diff / Slide Review NO; Basophils Absolute Auto 100 /uL (0-100); Eosinophils Absolute Auto 100 /uL (0-450); Eosinophils Percent Auto 0.9 % (2-4); Hematocrit 39.4 % (36-46); Hemoglobin 13.1 g/dL (12.0-16.0); Lymphocytes Absolute Auto 1100 /uL (1100-4500); Lymphocytes Percent Auto 16.3 % (25-40); Mean Corpuscular HGB Conc 33.2 % (30-36); Mean Corpuscular Hemoglobin 30.6 PG (26-34); Monocytes Absolute Auto 1400 /uL (0-900); Monocytes Percent Auto 20.6 % (3-14); Neutrophils Absolute Auto 4200 /uL (1500-7000); Neutrophils Percent Auto 61.2 % (50-75); Platelet Count 280 X10^3/uL (150-400); Red Blood Cell Count 4.28 X10^6/uL (4.0-5.2); Red Cell Distribution Width 13.4 % (11.6-14.8); White Blood Cell Count 6.8 X10^3/uL (4.5-11.0)
[2024-10-05 14:34] LABS: INR 1.2 (0.9-1.3); Prothrombin Time 14.1 SECONDS (9.4-12.5)
[2024-10-05 14:36] LABS: PTT Partial Thromboplastin Tim 30 SECONDS (25.1-36.5)
--- NOTE | 2024-10-05 14:38 | PC.NURSE ---
Patient was brought in by EMS for syncopal episode, patient was incontinent of bowel SON Issa and MARISSA Lan cleaned her up. Patient has felt increasing weakness in the past week with cough and subjective fevers. Son at bedside reports that she was sick two or three weeks ago and started to get sick a coupld days ago. Patient temp 99.6 in triage. Incidental find of left buttocks wound that patient reports she had biopsy 6 months ago, wound is open to air
[2024-10-05 14:40] LABS: Alanine Aminotransferase 21 IU/L (<35); Albumin 3.6 g/dL (3.5-5.0); Alkaline Phosphatase 76 U/L (38-126); Aspartate Aminotransferase 31 IU/L (14-36); Bilirubin Total 0.3 mg/dL (0.2-1.3); Blood Urea Nitrogen 20 mg/dL (7-17); Calcium 8.6 mg/dL (8.4-10.2); Carbon Dioxide 28 mmol/L (22-32); Chloride 97 mmol/L (98-107); Creatine Kinase 22 U/L (30-135); Estimated Glomerular Filt Rate 58 mL/min (>60); Globulin 3.6 g/dL (1.7-4.1); Glucose 238 mg/dL (80-110); HEMOLYSIS < 15 (0-50); Lipase 133 U/L (23-300); Magnesium 1.6 mg/dL (1.6-2.3); Potassium 4.2 mmol/L (3.4-5.1); Sodium 133 mmol/L (137-145); Total Protein 7.2 g/dL (6.3-8.2)
[2024-10-05 14:52] LABS: NT-proBNP (BNP-Adult 18+) 204 pg/mL (<450); Troponin I < 0.012 ng/mL (0.01-0.034)
[2024-10-05 15:20] LABS: Adenovirus Not Detected (Not Detect); B. parapertussis Not Detected (Not Detecte); Bordetella pertussis Not Detected (Not Detect); Chlamydophila pneumoniae Not Detected (Not Detect); Coronavirus 229E Not Detected (Not Detect); Coronavirus HKU1 Not Detected (Not Detect); Coronavirus NL 63 Not Detected (Not Detect); Coronavirus OC43 Not Detected (Not Detect); Human Metapneumovirus Not Detected (Not Detect); Human Rhinovirus/Enterovirus Not Detected (Not Detect); Influenza A H3 Detected (Not Detect); Influenza B Not Detected (Not Detect); Mycoplasma pneumoniae Not Detected (Not Detect); Parainfluenza Virus 1 Not Detected (Not Detect); Parainfluenza Virus 2 Not Detected (Not Detect); Parainfluenza Virus 3 Not Detected (Not Detect); Parainfluenza Virus 4 Not Detected (Not Detect); Respiratory Syncytial Virus Not Detected (Not Detect); SARS- CoV-2 Not Detected (Not Detecte)
[2024-10-05 15:35] LABS: Adenovirus F 40/41 Not Detected (Not Detect); Astrovirus Not Detected (Not Detect); Campylobacter Not Detected (Not Detect); Clostridium difficile toxin AB Not Detected (Not Detect); Cryptosporidium Not Detected (Not Detect); Cyclospora cayetanensis Not Detected (Not Detect); Entamoeba histolytica Not Detected (Not Detect); Enteroaggregative E.coli Not Detected (Not Detect); Enteropathogenic E.coli Not Detected (Not Detect); Enterotoxigenic E.coli It/st Not Detected (Not Detect); Giardia lamblia Not Detected (Not Detect); Norovirus GI/GII Not Detected (Not Detect); Plesiomonsa shigelloides Not Detected (Not Detect); Rotavirus A Not Detected (Not Detect); Salmonella Not Detected (Not Detect); Sapovirus Not Detected (Not Detect); Shiga-like toxin-prod E.coli Not Detected (Not Detect); Shigella/Enteroinvasive E.coli Not Detected (Not Detect); Vibrio Not Detected (Not Detect); Vibrio cholerae Not Detected (Not Detect); Yersinia enterocolitica Not Detected (Not Detect)
--- NOTE | 2024-10-05 16:48 | PC.NURSE ---
Dr Victoria gave this RN a verbal order for 1L bolus ns
--- NOTE | 2024-10-05 20:31 | ED.GENADULT ---
HPI - General Adult General Chief complaint: Syncope Stated complaint: Syncopal episode Time Seen by Provider: 10/05/24 18:09 Source: patient and EMS Mode of arrival: EMS History of Present Illness HPI narrative: 78-year-old female with history of prior CVA, ambulates at home with a walker as baseline, history of diabetes and hyperlipidemia and hypertension, has recent respiratory illness 3 weeks ago that resolved after 3 days, seemed to be well, now with 2 days of dry cough and loose nonbloody stools, generalized weakness, felt like she might pass out. No chest pain, no dyspnea. No black or red stools. No nausea or vomiting. No painful urination or frequency of urination. No household exposure to persons with known recent respiratory illness. Lives with family. She does not usually use oxygen at home. Related Data Home Medications Medication Instructions Recorded Confirmed amlodipine 10 mg tablet 10 mg PO DAILY 09/26/22 10/03/22 aspirin 81 mg tablet,delayed 81 mg PO DAILY 09/26/22 10/03/22 release carvedilol 25 mg tablet 25 mg PO BID 09/26/22 10/03/22 insulin glargine 100 unit/mL (3 30 unit SUBCUT QDAY 09/26/22 10/03/22 mL) subcutaneous pen (Lantus Solostar U-100 Insulin) metformin 500 mg tablet 2,000 mg PO DAILY 09/26/22 10/03/22 multivitamin (Multiple Vitamins 1 tab PO DAILY 09/26/22 10/03/22 tablet) prednisone 1 mg tablet 4 mg PO DAILY 09/26/22 10/03/22 Previous Rx's Medication Instructions Recorded losartan 50 mg tablet 50 mg PO BID #60 tabs 04/02/17 oseltamivir 75 mg capsule (Tamiflu) 75 mg PO BID 5 days #10 caps 10/05/24 Allergies Allergy/AdvReac Type Severity Reaction Status Date / Time No Known Drug Allergies Allergy Unverified 10/03/22 14:03 Patient History Surgical History Status post ovarian cystectomy Family History Mother Diabetes mellitus Social History Smoking Status: Never smoker Smoking Status: Never smoker alcohol intake frequency: holidays/special occasions only Exam Narrative Exam Narrative: GENERAL: Well-developed patient, in mild distress. HEAD: Atraumatic. Normocephalic. EYES: Pupils equal round and reactive. Extraocular motions intact. No scleral icterus. No injection or drainage. ENT: Nose without bleeding, purulent drainage. Throat without erythema, tonsillar hypertrophy or exudate. Airway patent. NECK: Trachea midline. Non tender CARDIOVASCULAR: Regular rate and rhythm without murmurs, gallops, or rubs. RESPIRATORY: Clear to auscultation. Breath sounds equal bilaterally. No wheezes, rales, or rhonchi. GASTROINTESTINAL: Abdomen soft, non-tender, nondistended. EXTREMITIES: No edema or joint tenderness. BACK: Nontender without deformity or crepitance. No flank tenderness. NEURO: AOx3. Motor functions grossly nonfocal SKIN: No rash or erythema of visible areas Initial Vital Signs Initial Vital Signs: Vital Signs Temperature 99.6 F 10/05/24 13:20 Pulse Rate 71 10/05/24 13:20 Respiratory Rate 20 10/05/24 13:20 Blood Pressure 111/55 L 10/05/24 13:20 Pulse Oximetry 100 10/05/24 13:20 Oxygen Delivery Method Room Air 10/05/24 13:20 Course Orders Ordered: Discontinued Medications Albuterol (Albuterol 2.5 Mg/3 Ml Neb (Adult)) 2.5 mg INH NOW ONE Stop: 10/05/24 21:00 Last Admin: 10/05/24 21:32 Dose: 2.5 mg Documented By: CAROL Albuterol (Albuterol Hfa Prepack) 1 box MISC DIRECTED ONE Stop: 10/05/24 22:11 Last Admin: 10/05/24 22:13 Dose: 1 box Documented By: CAROL Oseltamivir Phosphate (Oseltamivir 75 Mg Capsule) 75 mg PO NOW ONE Stop: 10/05/24 20:59 Last Admin: 10/05/24 21:13 Dose: 75 mg Documented By: CAROL Vital Signs Vital signs: Vital Signs - 8 hr 10/05/24 14:30 10/05/24 14:30 10/05/24 14:58 Pulse Rate 68 Respiratory Rate 21 Blood Pressure 104/53 L 103/51 L Pulse Oximetry 93 Oxygen Delivery Method Room Air Oxygen Flow Rate 10/05/24 14:58 10/05/24 15:00 10/05/24 15:30 Pulse Rate 70 71 71 Respiratory Rate 22 22 19 Blood Pressure Pulse Oximetry 96 97 97 Oxygen Delivery Method Nasal Cannula Nasal Cannula Oxygen Flow Rate 1 1 10/05/24 15:30 10/05/24 16:00 10/05/24 16:00 Pulse Rate 74 Respiratory Rate 21 Blood Pressure 123/59 L 128/61 Pulse Oximetry Oxygen Delivery Method Oxygen Flow Rate 10/05/24 16:30 10/05/24 16:30 10/05/24 17:00 Pulse Rate 73 73 Respiratory Rate 18 21 Blood Pressure 114/55 L Pulse Oximetry 97 96 Oxygen Delivery Method Nasal Cannula Oxygen Flow Rate 1 10/05/24 17:00 10/05/24 17:30 10/05/24 17:30 Pulse Rate 74 Respiratory Rate 20 Blood Pressure 112/59 L 110/54 L Pulse Oximetry 95 Oxygen Delivery Method Oxygen Flow Rate 10/05/24 18:00 10/05/24 18:00 10/05/24 18:30 Pulse Rate 75 75 Respiratory Rate 18 25 H Blood Pressure 114/54 L Pulse Oximetry 95 94 Oxygen Delivery Method Nasal Cannula Oxygen Flow Rate 1 10/05/24 18:30 10/05/24 19:00 10/05/24 19:00 Pulse Rate 76 Respiratory Rate 21 Blood Pressure 107/53 L 119/58 L Pulse Oximetry 94 Oxygen Delivery Method Nasal Cannula Oxygen Flow Rate 1 10/05/24 19:30 10/05/24 19:30 10/05/24 20:00 Pulse Rate 75 75 Respiratory Rate 22 Blood Pressure 107/58 L Pulse Oximetry 95 95 Oxygen Delivery Method Oxygen Flow Rate 10/05/24 20:01 10/05/24 20:01 10/05/24 20:30 Pulse Rate 75 71 Respiratory Rate 24 19 Blood Pressure 115/56 L Pulse Oximetry 95 90 L Oxygen Delivery Method Oxygen Flow Rate 10/05/24 20:30 10/05/24 21:00 10/05/24 21:01 Pulse Rate 74 Respiratory Rate Blood Pressure 131/63 139/62 Pulse Oximetry 94 Oxygen Delivery Method Oxygen Flow Rate 10/05/24 21:01 10/05/24 21:30 10/05/24 21:30 Pulse Rate 75 75 Respiratory Rate 24 Blood Pressure 112/56 L Pulse Oximetry 95 93 Oxygen Delivery Method Oxygen Flow Rate Medical Decision Making Lab Data Lab results reviewed: Yes I reviewed the patient's lab results. Lab results narrative: White blood cell count 6800, hemoglobin 13.1, platelets adequate. Glucose 238. BUN 20 with creatinine 1.0. Sodium 133 with potassium 4.2, chloride 97, serum CO2 28. Lipase and liver functions normal. Troponin negative/unmeasurable. Stool enteric pathogen panel negative. Respiratory panel positive for influenza type A, otherwise negative. 10/05/24 13:14 10/05/24 13:14 Labs: Lab Results 10/05/24 10/05/24 10/05/24 Range/Units 13:14 13:15 13:18 WBC 6.8 (4.5-11.0) X10^3/uL RBC 4.28 (4.0-5.2) X10^6/uL Hgb 13.1 (12.0-16.0) g/dL Hct 39.4 (36-46) % MCV 92.0 (80-100) fL MCH 30.6 (26-34) PG MCHC 33.2 (30-36) % RDW 13.4 (11.6-14.8) % Plt Count 280 (150-400) X10^3/uL Neut % (Auto) 61.2 (50-75) % Lymph % (Auto) 16.3 L (25-40) % [place] % (Auto) 20.6 H (3-14) % Eos % (Auto) 0.9 L (2-4) % Baso % (Auto) 1.0 (0-2) % Neut # (Auto) 4200 (2546-3491) /uL Lymph # (Auto) 1100 (5467-2969) /uL [place] # (Auto) 1400 H (0-900) /uL Eos # (Auto) 100 (0-450) /uL Baso # (Auto) 100 (0-100) /uL PT 14.1 H (9.4-12.5) SECONDS INR 1.2 (0.9-1.3) APTT 30 (25.1-36.5) SECONDS Sodium 133 L (137-145) mmol/L Potassium 4.2 (3.4-5.1) mmol/L Chloride 97 L (98-107) mmol/L Carbon Dioxide 28 (22-32) mmol/L BUN 20 H (7-17) mg/dL Creatinine 1.00 (0.52-1.04) mg/dL Estimated GFR 58 L (>60) mL/min BUN/Creatinine Ratio 20.0 (6-22) Glucose 238 H (80-110) mg/dL Calcium 8.6 (8.4-10.2) mg/dL Magnesium 1.6 (1.6-2.3) mg/dL Total Bilirubin 0.3 (0.2-1.3) mg/dL AST 31 (14-36) IU/L ALT 21 (<35) IU/L Alkaline Phosphatase 76 (38-126) U/L Total Creatine Kinase 22 L (30-135) U/L Troponin I < 0.012 (0.01-0.034) ng/mL NT-Pro-B Natriuret Pep 204 (<450) pg/mL Total Protein 7.2 (6.3-8.2) g/dL Albumin 3.6 (3.5-5.0) g/dL Globulin 3.6 (1.7-4.1) g/dL Albumin/Globulin Ratio 1.0 (1.0-2.8) Lipase 133 (23-300) U/L Stl C. cayetanensis PCR Not detected (Not Detect) Stool Rotavirus (PCR) Not detected (Not Detect) Stool Adenovirus (PCR) Not detected (Not Detect) Stool Astrovirus (PCR) Not detected (Not Detect) Stool Cryptosporidium PCR Not detected (Not Detect) Stl E.coli Shiga Tox PCR Not detected (Not Detect) St Sh/Enteroin Ecoli PCR Not detected (Not Detect) Stl Enterotoxigenic E PCR Not detected (Not Detect) Stool EPEC (PCR) Not detected (Not Detect) Stl E. histolytica PCR Not detected (Not Detect) Stool Giardia Lamblia PCR Not detected (Not Detect) Stool Sapovirus (PCR) Not detected (Not Detect) Stl P. shigelloides PCR Not detected (Not Detect) St Y.enterocolitica PCR Not detected (Not Detect) Stool Vibrio (PCR) Not detected (Not Detect) Stl Vibrio cholerae PCR Not detected (Not Detect) Stl Enteroaggr Ecoli PCR Not detected (Not Detect) Stl Norovirus GI/GII PCR Not detected (Not Detect) Chlamy pneumoniae PCR Not detected (Not Detect) Adenovirus (PCR) Not detected (Not Detect) B. pertussis DNA (PCR) Not detected (Not Detect) B.parapertussis DNA PCR Not detected (Not Detecte) Campylobacter (PCR) Not detected (Not Detect) C. difficile Tox (PCR) Not detected (Not Detect) Coronavirus OC43 (PCR) Not detected (Not Detect) Coronavirus HKU1 (PCR) Not detected (Not Detect) Coronavirus 229E (PCR) Not detected (Not Detect) SARS-CoV-2 (PCR) Not detected (Not Detecte) Coronavirus NL63 (PCR) Not detected (Not Detect) Human Metapneumovir PCR Not detected (Not Detect) Influenza A (H3) PCR Detected H (Not Detect) Influenza Type B (PCR) Not detected (Not Detect) M. pneumoniae (PCR) Not detected (Not Detect) Parainfluenza 1 (PCR) Not detected (Not Detect) Parainfluenza 2 (PCR) Not detected (Not Detect) Parainfluenza 3 (PCR) Not detected (Not Detect) Parainfluenza 4 (PCR) Not detected (Not Detect) RSV (PCR) Not detected (Not Detect) Entero/Rhino (PCR) Not detected (Not Detect) Salmonella (PCR) Not detected (Not Detect) Imaging Data Chest x-ray: Radiologist's Impression: [place] [address] XRay Report Signed Patient: Isabel Ruiz MR#: [id number] : 1945 Acct:[id number] Age/Sex: 78 / F Date of Service: 10/05/24 Loc: ED Accession Number: [id number] Procedure: XR chest 1V Ordering Provider: Katie Victoria D.O. PROCEDURE: XR CHEST 1V INDICATIONS: chest pain TECHNIQUE: One view of the chest was acquired. COMPARISON: [facility], CHEST 1 VIEW, 03/30/2017, 11:29. FINDINGS: Surgical changes and devices: None. Lungs and pleura: Lungs are clear. No pleural effusions or pneumothorax. Mediastinum: Mediastinal contours appear normal. Heart size is normal. Bones and chest wall: No suspicious bony lesions. Overlying soft tissues appear unremarkable. IMPRESSION: No acute cardiopulmonary abnormality is seen. Dictated by: Dean Herrera M.D. on 10/05/2024 at 14:21 Approved by: Dean Herrera M.D. on 10/05/2024 at 14:21 ECG Data Attestation: I personally reviewed and interpreted this ECG as follows: Interpretation: Sinus rhythm with first-degree AV block, SC 212 noted, no obvious ST segment elevation or depression changes. Some movement artifact precordial leads. QRS 78, QTC 430. MDM Narrative Medical decision making narrative: 78-year-old female with recent cough and diarrhea nonbloody, felt like she might might pass out, improved now. Afebrile, SIRS screen negative. EKG CXR labs pending, including respiratory swab. IVF bolus. EKG sinus rhythm without obvious ischemic changes. Troponin negative/unmeasurable. Chest x-ray negative. Laboratory data: White blood cell count 6800, hemoglobin 13.1, platelets adequate. Glucose 238. BUN 20 with creatinine 1.0. Sodium 133 with potassium 4.2, chloride 97, serum CO2 28. Lipase and liver functions normal. Troponin negative/unmeasurable. Stool enteric pathogen panel negative. Respiratory panel positive for influenza type A, otherwise negative. Influenza type A, with possible dehydration and nonbloody diarrhea, GI Panel negative, feels better after IV fluids. Discussed antiviral Tamiflu, they would like to try it, first dose in ED, Rx sent to her pharmacy. Would like to go home. Home with family. Return precautions discussed. Discharge Plan Departure Patient Disposition: Home Clinical Impression: Influenza A, Dehydration, Diarrhea, Generalized weakness Activity Restrictions/Additional Instructions: Ms Ruiz, you have recent cough and diarrheal illness and generalized weakness. Stool studies were negative here. Respiratory panel was positive for influenza type A, which can also be a cause of diarrhea. You were given IV fluids. Oxygen was initiated and weaned off. You were able to ambulate with a walker which you use at home. We discussed antiviral Tamiflu medication, 1st dose in the emergency department, prescription for 5 day course sent to your pharmacy, take as soon as you are able to in the morning, and complete the course as directed. Hopefully the Tamiflu might reduce the severity and duration of influenza illness. Chest x-ray showed no pneumonia today. Consider recheck of symptoms with your regular doctor in a couple of days. Return to this/nearest emergency department for any change worsening symptoms or any concerns prior. Thank you for allowing our team to evaluate you today. Prescriptions: New oseltamivir [Tamiflu] 75 mg capsule 75 mg PO BID 5 Days Qty: 10 0RF No Action losartan 50 MG tablet 50 mg PO BID Qty: 60 0RF insulin glargine [Lantus Solostar U-100 Insulin] 100 unit/mL (3 mL) insulin pen 30 unit SUBCUT QDAY amlodipine 10 mg tablet 10 mg PO DAILY carvedilol 25 mg tablet 25 mg PO BID Rx Instructions: must administer with a meal/food metformin 500 mg tablet 2,000 mg PO DAILY prednisone 1 mg tablet 4 mg PO DAILY aspirin 81 mg tablet,delayed release (DR/EC) 81 mg PO DAILY multivitamin [Multiple Vitamins] Tablet 1 tab PO DAILY Referrals: Rosenda Sarmiento MD [Primary Care Provider] - Stand Alone Forms: Patient Portal/API/Survey
[2024-10-05] MEDS: OSELTAMIVIR 75 MG CAPSULE PO (21:13)
[2024-10-05] MEDS: ALBUTEROL 2.5 MG/3 ML NEB (ADULT) INH (21:32)
[2024-10-05] MEDS: ALBUTEROL HFA PREPACK 1 BOX MISC (22:13)
--- NOTE | 2024-10-06 14:18 | CM.SWNOTE ---
ED AUTOMOTIVE ARTIST Follow Up Note AUTOMOTIVE ARTIST receives follow up consult from RN due to patient's son's questions about caregiving. AUTOMOTIVE ARTIST calls patient's home phone, patient's son answers. He reports that he quit his job 6 years ago and has been staying with patient and caring for her. He reports that he has a home in [place] that he checks on every few months and is interested in seeking a caregiver for patient for those times. Patient also asks about compensation for the caregiver services he is providing patient as he does not have a job, AUTOMOTIVE ARTIST explains that this is an option if patient has state Medicaid insurance but she does not at this time. AUTOMOTIVE ARTIST emails patient's son [facility] resources about caregiver supports, lists of private and agency caregivers. EDDIE Barton
== END 2024-10-05 22:18 | disposition home or self-care (01) ==
PROVIDERS: Emergency Medicine; Emergency Provider Emergency Medicine; PCP Internal Medicine
DX: J10.1 Influenza due to other identified influenza virus with other respiratory manifestations (principal); R07.9 Chest pain, unspecified; E86.0 Dehydration; R19.7 Diarrhea, unspecified; R53.1 Weakness; Z86.73 Personal history of transient ischemic attack (TIA), and cerebral infarction without residual deficits; E11.9 Type 2 diabetes mellitus without complications; Z79.4 Long term (current) use of insulin; E78.5 Hyperlipidemia, unspecified; I10 Essential (primary) hypertension; I44.0 Atrioventricular block, first degree
CPT/HCPCS: 36415; 71045; 80053; 82550; 83690; 83735; 83880; 84484; 85025; 85610; 85730; 87507; 87633; 93005; 99284; J7613

== ENCOUNTER 2024-10-10 14:35 | Emergency (ER) | payer MEDICARE, SELFPAY ==
[2024-10-10] VITALS (12 sets, daily range): BP systolic 111–136; BP diastolic 57–74; PULSE 64–71; RESP 16–21; TEMP 36.6; O2SAT 93–98
--- NOTE | 2024-10-10 14:51 | DI.RAD.S_ITS ---
PROCEDURE: XR CHEST 1V INDICATIONS: chest pain TECHNIQUE: One view of the chest was acquired. COMPARISON: [facility], , CHEST 1 VIEW, 03/30/2017, 11:29. [facility], , XR CHEST 1V, 10/05/2024, 13:28. FINDINGS: Surgical changes and devices: None. Lungs and pleura: Lungs are clear. No pleural effusions or pneumothorax. Mediastinum: The cardiac contours are within normal limits. The aorta demonstrates calcification and tortuosity. Bones and chest wall: No suspicious bony lesions. Age-appropriate bony degenerative changes are seen. Overlying soft tissues appear unremarkable. IMPRESSION: Portable chest within normal limits for age. Dictated by: Prabhjot Hinojosa M.D. on 10/10/2024 at 14:35 Approved by: Prabhjot Hinojosa M.D. on 10/10/2024 at 14:36
--- NOTE | 2024-10-10 14:51 | EKG_ITS ---
[address] [address] Test Date: 2024-10-10 Pat Name: Isabel Ruiz Department: Room: Gender: Female Secretary [employer]: EMMANUEL : 1945 Requested By: Order Number: [id number] Reading MD: Cheo Rainey Measurements Intervals [place] Rate: 68 P: 79 MN: 190 QRS: -17 QRSD: 74 T: 27 QT: 408 QTc: 433 Interpretive Statements Normal sinus rhythm Low voltage QRS Inferior infarct , age undetermined Cannot rule out Anterior infarct , age undetermined Electronically Signed On 10-11-2024 7:25:08 PST by Cheo Rainey
[2024-10-10 15:24] LABS: Add Manual Diff / Slide Review NO; Basophils Absolute Auto 100 /uL (0-100); Basophils Percent Auto 1.2 % (0-2); Eosinophils Absolute Auto 500 /uL (0-450); Hematocrit 38.4 % (36-46); Hemoglobin 12.9 g/dL (12.0-16.0); Lymphocytes Absolute Auto 1900 /uL (1100-4500); Lymphocytes Percent Auto 20.2 % (25-40); Mean Corpuscular HGB Conc 33.7 % (30-36); Mean Corpuscular Hemoglobin 30.9 PG (26-34); Mean Corpuscular Volume 91.6 fL (80-100); Monocytes Absolute Auto 1100 /uL (0-900); Monocytes Percent Auto 11.6 % (3-14); Neutrophils Absolute Auto 5900 /uL (1500-7000); Platelet Count 311 X10^3/uL (150-400); Red Blood Cell Count 4.19 X10^6/uL (4.0-5.2); Red Cell Distribution Width 13.4 % (11.6-14.8); White Blood Cell Count 9.5 X10^3/uL (4.5-11.0)
[2024-10-10 15:38] LABS: INR 1.1 (0.9-1.3); Prothrombin Time 12.9 SECONDS (9.4-12.5)
[2024-10-10 15:41] LABS: PTT Partial Thromboplastin Tim 29 SECONDS (25.1-36.5)
[2024-10-10 15:43] LABS: Alanine Aminotransferase 26 IU/L (<35); Albumin 3.7 g/dL (3.5-5.0); Alkaline Phosphatase 70 U/L (38-126); Aspartate Aminotransferase 32 IU/L (14-36); BUN Creatinine Ratio 22.9 (6-22); Bilirubin Total 0.5 mg/dL (0.2-1.3); Blood Urea Nitrogen 16 mg/dL (7-17); Carbon Dioxide 22 mmol/L (22-32); Chloride 104 mmol/L (98-107); Creatine Kinase 30 U/L (30-135); Estimated Glomerular Filt Rate > 60 mL/min (>60); Globulin 3.7 g/dL (1.7-4.1); Glucose 155 mg/dL (80-110); HEMOLYSIS 42 (0-50); Lipase 96 U/L (23-300); Magnesium 1.5 mg/dL (1.6-2.3); Potassium 4.2 mmol/L (3.4-5.1); Sodium 136 mmol/L (137-145); Total Protein 7.4 g/dL (6.3-8.2)
[2024-10-10 15:54] LABS: NT-proBNP (BNP-Adult 18+) 129 pg/mL (<450); Troponin I < 0.012 ng/mL (0.01-0.034)
--- NOTE | 2024-10-10 18:59 | ED_ITS ---
HPI - Weakness General Chief complaint: Weakness Stated complaint: syncope, severe diarrhea, faint Time Seen by Provider: 10/10/24 18:59 History of Present Illness HPI Narrative: 78-year-old female with a history of hypertension CVA diabetes comes into the ED from home for evaluation of generalized weakness. Patient presents with family stating that she has had difficulty breathing this morning as well with several episodes of diarrhea. Patient has recently been diagnosed with flu a on 10/05/2024. They also state that they believe she may have passed out twice today but this was unwitnessed. Patient denies any actual headache visual disturbances chest pain shortness of breath fever chills or any other GI/ symptoms time. Related Data Home Medications Medication Instructions Recorded Confirmed amlodipine 10 mg tablet 10 mg PO DAILY 09/26/22 10/03/22 aspirin 81 mg tablet,delayed 81 mg PO DAILY 09/26/22 10/03/22 release carvedilol 25 mg tablet 25 mg PO BID 09/26/22 10/03/22 insulin glargine 100 unit/mL (3 30 unit SUBCUT QDAY 09/26/22 10/03/22 mL) subcutaneous pen (Lantus Solostar U-100 Insulin) metformin 500 mg tablet 2,000 mg PO DAILY 09/26/22 10/03/22 multivitamin (Multiple Vitamins 1 tab PO DAILY 09/26/22 10/03/22 tablet) prednisone 1 mg tablet 4 mg PO DAILY 09/26/22 10/03/22 Previous Rx's Medication Instructions Recorded losartan 50 mg tablet 50 mg PO BID #60 tabs 04/02/17 albuterol sulfate 90 mcg/actuation 2 inh inhalation QID PRN shortness 10/10/24 breath activated powder inhaler of breath or wheezing #1 ea Allergies Allergy/AdvReac Type Severity Reaction Status Date / Time No Known Drug Allergies Allergy Verified 10/10/24 14:50 Review of Systems Review of Systems Narrative: General: Positive generalized weakness Denies fever, chills, weight loss HEENT: Denies headache, eye drainage, eye irritation, head trauma, sore throat, voice change Cardiovascular: Denies any chest pain, palpitations, shortness of breath, tachycardia Respiratory: Positive shortness of breath, cough, denies wheeze, stridor GI/: Denies any abdominal pain, nausea, vomiting, diarrhea, bright red blood per rectum, melanotic stools, urinary frequency, urinary retention, dysuria, hematuria MSK: Denies any joint pain, muscle pains, swelling Skin: Denies any rashes, lesions, discoloration Neuro: Denies any headache, lightheadedness, dizziness, fainting, weakness Psych: Denies SI/HI Patient History Surgical History Status post ovarian cystectomy Family History Mother Diabetes mellitus Social History Smoking Status: Never smoker Smoking Status: Never smoker alcohol intake frequency: holidays/special occasions only Exam Narrative Exam Narrative: General: Cooperative, comfortable, well-developed, not in acute distress HEENT: Normocephalic, atraumatic, PERRLA, normal sclera, eyelids normal, Neck: Active full range of motion, atraumatic Chest: Normal to inspection, negative crepitus, no overlying erythema ecchymosis Respiratory: Coughing on exam, however protecting airway not requiring any supplemental oxygen Normal respiratory effort, not in acute respiratory distress, clear to auscultation bilaterally negative wheeze, tachypnea, rhonchi, rales Cardiology: Regular rate rhythm negative gallop, murmur, rubs GI/: Normal to inspection, soft, nonrigid, no tenderness to palpation, exam deferred MSK: Full range of active range of motion of all 4 extremities, atraumatic Skin: No rashes lesions noted Neuro: Alert awake oriented x3, moves all 4 extremities spontaneously, cranial nerves intact, able to answer all questions appropriately follows commands appropriately Psych: Cooperative, negative suicidal or homicidal ideations Initial Vital Signs Initial Vital Signs: Vital Signs Pulse Rate 68 10/10/24 14:51 Respiratory Rate 16 10/10/24 14:51 Blood Pressure 131/74 10/10/24 14:51 Pulse Oximetry 98 10/10/24 14:51 Oxygen Delivery Method Room Air 10/10/24 14:51 Course Orders Ordered: ED Orders 10/10/24 14:51 XR chest 1V Stat EKG-12 Lead Stat 10/10/24 15:18 Complete Blood Count AUTO DIFF Stat Comprehensive Metabolic Panel Stat Lipase Stat Magnesium Stat NT-proBNP (BNP-Adult 18+) Stat PTT Partial Thromboplastin Jose Stat Prothrombin Time INR Stat Troponin & CK Cardiac Panel Stat Discontinued Medications Aspirin (Aspirin 81 Mg Chew Tab) 324 mg PO NOW ONE Stop: 10/10/24 14:51 Last Admin: 10/10/24 15:25 Dose: Not Given Documented By: Vital Signs Vital signs: Vital Signs - 8 hr 10/10/24 14:51 10/10/24 15:05 10/10/24 15:11 Temperature 98 F Pulse Rate 68 71 Respiratory Rate 16 Blood Pressure 131/74 Pulse Oximetry 98 93 Oxygen Delivery Method Room Air 10/10/24 15:30 10/10/24 15:30 10/10/24 16:00 Temperature Pulse Rate 66 Respiratory Rate 21 Blood Pressure 117/59 L 111/57 L Pulse Oximetry 94 Oxygen Delivery Method 10/10/24 16:00 10/10/24 16:30 10/10/24 16:30 Temperature Pulse Rate 66 65 Respiratory Rate 19 Blood Pressure 123/61 Pulse Oximetry 96 96 Oxygen Delivery Method 10/10/24 17:00 10/10/24 17:00 10/10/24 17:30 Temperature Pulse Rate 64 66 Respiratory Rate 18 20 Blood Pressure 126/61 Pulse Oximetry 97 98 Oxygen Delivery Method 10/10/24 17:30 10/10/24 18:00 10/10/24 18:00 Temperature Pulse Rate 66 Respiratory Rate 21 Blood Pressure 123/65 122/63 Pulse Oximetry 96 Oxygen Delivery Method 10/10/24 18:30 10/10/24 18:30 Temperature Pulse Rate 66 Respiratory Rate 20 Blood Pressure 136/65 Pulse Oximetry 96 Oxygen Delivery Method MDM - Weakness Differential Diagnosis Differential diagnosis: Likely acute myocardial infarction, dehydration and other (Electrolyte abnormality, pneumonia, flu, ACS) Lab Data 10/10/24 15:18 10/10/24 15:18 Labs: Lab Results 10/10/24 Range/Units 15:18 WBC 9.5 (4.5-11.0) X10^3/uL RBC 4.19 (4.0-5.2) X10^6/uL Hgb 12.9 (12.0-16.0) g/dL Hct 38.4 (36-46) % MCV 91.6 (80-100) fL MCH 30.9 (26-34) PG MCHC 33.7 (30-36) % RDW 13.4 (11.6-14.8) % Plt Count 311 (150-400) X10^3/uL Neut % (Auto) 62.0 (50-75) % Lymph % (Auto) 20.2 L (25-40) % Woodson % (Auto) 11.6 (3-14) % Eos % (Auto) 5.0 H (2-4) % Baso % (Auto) 1.2 (0-2) % Neut # (Auto) 5900 (7782-6116) /uL Lymph # (Auto) 1900 (5008-6297) /uL Woodson # (Auto) 1100 H (0-900) /uL Eos # (Auto) 500 H (0-450) /uL Baso # (Auto) 100 (0-100) /uL PT 12.9 H (9.4-12.5) SECONDS INR 1.1 (0.9-1.3) APTT 29 (25.1-36.5) SECONDS Sodium 136 L (137-145) mmol/L Potassium 4.2 (3.4-5.1) mmol/L Chloride 104 (98-107) mmol/L Carbon Dioxide 22 (22-32) mmol/L BUN 16 (7-17) mg/dL Creatinine 0.70 (0.52-1.04) mg/dL Estimated GFR > 60 (>60) mL/min BUN/Creatinine Ratio 22.9 H (6-22) Glucose 155 H (80-110) mg/dL Calcium 9.0 (8.4-10.2) mg/dL Magnesium 1.5 L (1.6-2.3) mg/dL Total Bilirubin 0.5 (0.2-1.3) mg/dL AST 32 (14-36) IU/L ALT 26 (<35) IU/L Alkaline Phosphatase 70 (38-126) U/L Total Creatine Kinase 30 (30-135) U/L Troponin I < 0.012 (0.01-0.034) ng/mL NT-Pro-B Natriuret Pep 129 (<450) pg/mL Total Protein 7.4 (6.3-8.2) g/dL Albumin 3.7 (3.5-5.0) g/dL Globulin 3.7 (1.7-4.1) g/dL Albumin/Globulin Ratio 1.0 (1.0-2.8) Lipase 96 (23-300) U/L Point of Care Testing Glucose POC 164 Imaging Data Chest x-ray: Radiologist Impression: [address] [id number] XRay Report Signed Patient: Isabel Ruiz MR#: [id number] : 1945 Acct:[id number] Age/Sex: 78 / F Date of Service: 10/10/24 Loc: ED Accession Number: [id number] Procedure: XR chest 1V Ordering Provider: Sandip Sellers MD PROCEDURE: XR CHEST 1V INDICATIONS: chest pain TECHNIQUE: One view of the chest was acquired. COMPARISON: [facility], , CHEST 1 VIEW, 03/30/2017, 11:29. [facility], , XR CHEST 1V, 10/05/2024, 13:28. FINDINGS: Surgical changes and devices: None. Lungs and pleura: Lungs are clear. No pleural effusions or pneumothorax. Mediastinum: The cardiac contours are within normal limits. The aorta demonstrates calcification and tortuosity. Bones and chest wall: No suspicious bony lesions. Age-appropriate bony degenerative changes are seen. Overlying soft tissues appear unremarkable. IMPRESSION: Portable chest within normal limits for age. ECG Data Interpretation: EKG interpreted ED physician sinus 68 beats per minute QTC [address] changes no STEMI MDM Narrative Medical decision making narrative: 78-year-old female with a history of hypertension hyperlipidemia diabetes recent diagnosis of influenza a presents with family for evaluation of generalized weakness diarrhea since patient has been diagnosed with influenza a on 10/05/2024. Patient had lab work without any acute findings no leukocytosis creatinine BUN normal troponin negative EKG nonischemic in nature chest x-ray without any acute cardiopulmonary abnormality. Patient states that she has had persistent cough with sputum production but denies any actual chest pain. States that whenever she coughs she does have some mild shortness of breath but this resolves after the coughing ceases. Patient's family member at bedside states that he has been giving her her normal medications that she has been tolerating it but brought her in because patient states that she does not know why her symptoms have been going on for so long. She denies any new syncopal or presyncopal symptoms, states that she had syncopal symptom initially on 10/05/2024 which prompted them to be evaluated here in the emergency department. Patient has remained normotensive not requiring any supplemental oxygen lab work without any leukocytosis Chem panel unremarkable EKG nonischemic troponin negative symptoms more likely secondary to persistent influenza A. Patient will be sent home with symptomatic relief instructed follow up with primary care strict return precautions were given they verbalized understanding of this and agrees to being discharged home with outpatient follow up Review of records does show that patient had stool sample performed on 10/05/2024 that did not show any acute infections, however at that time was noted to have influenza A. Discharge Plan Departure Patient Disposition: Home Clinical Impression: Influenza A Instructions: DI for Influenza -- Adult Activity Restrictions/Additional Instructions: Please follow up with the primary care doctor, please increase your prednisone to 20 mg daily for the next 5 days Please read the discharge instructions sheet carefully and bring all papers to all doctor follow-up visits, as it may contain information that your doctor may want to see. Disease processes change and evolve, if your symptoms worsen or if you develop any new symptoms that are concerning to you please return for evaluation. Your evaluation today does not show any evidence of any life- threatening/serious illnesses requiring admission to the hospital or surgery. Please follow-up with your doctor for re-evaluation in approximately 1 day. Seek immediate medical attention for any worrisome symptoms. *If you do not have a primary care provider please contact the [facility] Resource line at [phone]. They will ask some questions about your medical history and help get you set up with a doctor in the community. Prescriptions: New albuterol sulfate 90 mcg/actuation aerosol powdr breath activated 2 inh inhalation QID PRN (Reason: shortness of breath or wheezing) Qty: 1 2RF No Action losartan 50 MG tablet 50 mg PO BID Qty: 60 0RF insulin glargine [Lantus Solostar U-100 Insulin] 100 unit/mL (3 mL) insulin pen 30 unit SUBCUT QDAY amlodipine 10 mg tablet 10 mg PO DAILY carvedilol 25 mg tablet 25 mg PO BID Rx Instructions: must administer with a meal/food metformin 500 mg tablet 2,000 mg PO DAILY prednisone 1 mg tablet 4 mg PO DAILY aspirin 81 mg tablet,delayed release (DR/EC) 81 mg PO DAILY multivitamin [Multiple Vitamins] Tablet 1 tab PO DAILY Referrals: Rosenda Sarmiento MD [Primary Care Provider] - Stand Alone Forms: Patient Portal/API/Survey
== END 2024-10-10 19:57 | disposition home or self-care (01) ==
PROVIDERS: Emergency Medicine; Emergency Provider Student in an Organized Health Care Education/Training Program; PCP Internal Medicine
DX: J10.1 Influenza due to other identified influenza virus with other respiratory manifestations (principal); R06.02 Shortness of breath
CPT/HCPCS: 36415; 71045; 80053; 82550; 82962; 83690; 83735; 83880; 84484; 85025; 85610; 85730; 93005; 99283; 99284